=== PATIENT | female | born 1935 | race Caucasian/White ===

== ENCOUNTER 2016-12-16 09:45 | Outpatient (CLI) | payer MEDICARE, OTHER ==
[2016-12-16 13:51] LABS: BASOPHILS # (AUTO) 0.1 10^3/uL (0.0-0.1); BASOPHILS % (AUTO) 1.2 %; EOSINOPHILS # (AUTO) 0.1 10^3/uL (0.0-0.7); HCT - HEMATOCRIT 32.3 % (37.0-47.0); HGB - HEMOGLOBIN 10.4 g/dL (12.0-16.0); LYMPHOCYTES % (AUTO) 38.3 %; MEAN CORPUSCULAR HEMOGLOBIN 26.4 pg (27.0-31.0); MEAN CORPUSCULAR HGB CONC 32.2 g/dL (32.0-36.0); MONOCYTES # (AUTO) 0.5 10^3/uL (0.0-1.0); MONOCYTES % (AUTO) 9.4 %; NEUTROPHILS # (AUTO) 2.6 10^3/uL (1.5-6.6); NEUTROPHILS % (AUTO) 49.1 %; RED BLOOD COUNT 3.93 10^6/uL (4.20-5.40); RED CELL DISTRIBUTION WIDTH 15.9 % (12.0-15.0); UNCORRECTED WHITE BLOOD COUNT 5.3 x10^3/uL; WHITE BLOOD COUNT 5.3 x10^3/uL (4.8-10.8)
[2016-12-16 14:00] LABS: ALBUMIN/GLOBULIN RATIO 1.2 (1.0-2.2); BILIRUBIN,TOTAL 0.6 mg/dL (0.2-1.0); BUN - BLOOD UREA NITROGEN 16 mg/dL (6-20); CALCIUM 9.3 mg/dL (8.5-10.3); CARBON DIOXIDE - CO2 24 mmol/L (21-32); CHLORIDE 106 mmol/L (101-111); CREATININE 1.1 mg/dL (0.4-1.0); GFR - MDRD 48 (>89); GLUCOSE 81 mg/dL (70-100); MAGNESIUM 1.6 mg/dL (1.7-2.8); POTASSIUM 4.3 mmol/L (3.5-5.0); SODIUM 138 mmol/L (135-145); TOTAL PROTEIN 7.1 g/dL (6.7-8.2)
[2016-12-16 14:30] LABS: THYROID STIMULATING HORMONE 5.9 uIU/mL (0.34-5.60)
== END 2016-12-16 09:46 | disposition home or self-care (01) ==
LOC: LAB.WCP 09:45
PROVIDERS: ATTEND Physician Assistant Medical
DX: R25.2 Cramp and spasm (principal); R63.5 Abnormal weight gain; Z79.899 Other long term (current) drug therapy
CPT/HCPCS: 36415; 80053; 83735; 84439; 84443; 85025

== ENCOUNTER 2017-01-20 17:39 | Outpatient (CLI) | payer MEDICARE, OTHER ==
[2017-01-20 13:38] LABS: FERRITIN 5.8 ng/mL (11.0-306.8)
[2017-01-20 13:41] LABS: BASOPHILS # (AUTO) 0.1 10^3/uL (0.0-0.1); BASOPHILS % (AUTO) 1.1 %; EOSINOPHILS # (AUTO) 0.1 10^3/uL (0.0-0.7); EOSINOPHILS % (AUTO) 1.7 %; HCT - HEMATOCRIT 31.5 % (37.0-47.0); IMMATURE RETIC FRACTION 0.53; LYMPHOCYTES # (AUTO) 2.1 10^3/uL (1.5-3.5); LYMPHOCYTES % (AUTO) 33.7 %; MEAN CORPUSCULAR HEMOGLOBIN 25.7 pg (27.0-31.0); MEAN CORPUSCULAR HGB CONC 31.9 g/dL (32.0-36.0); MEAN CORPUSCULAR VOLUME 80.5 fL (81.0-99.0); MONOCYTES # (AUTO) 0.6 10^3/uL (0.0-1.0); NEUTROPHILS # (AUTO) 3.4 10^3/uL (1.5-6.6); NEUTROPHILS % (AUTO) 54.5 %; NUCLEATED RED BLOOD CELLS AUTO 0.1 /100WBC; RED BLOOD COUNT 3.91 10^6/uL (4.20-5.40); RED CELL DISTRIBUTION WIDTH 15.9 % (12.0-15.0); UNCORRECTED WHITE BLOOD COUNT 6.2 x10^3/uL; WHITE BLOOD COUNT 6.2 x10^3/uL (4.8-10.8)
[2017-01-20 13:44] LABS: FOLATE 10.87 ng/mL (5.90 - >24.8)
[2017-01-20 13:45] LABS: ALBUMIN/GLOBULIN RATIO 1.3 (1.0-2.2); BILIRUBIN,TOTAL 0.7 mg/dL (0.2-1.0); CALCIUM 8.9 mg/dL (8.5-10.3); CREATININE 0.8 mg/dL (0.4-1.0); POTASSIUM 4.3 mmol/L (3.5-5.0); TOTAL PROTEIN 7.2 g/dL (6.7-8.2)
== END 2017-01-20 17:40 | disposition home or self-care (01) ==
LOC: LAB.WCP 17:39
PROVIDERS: ATTEND Physician Assistant Medical
DX: D64.9 Anemia, unspecified (principal); R19.01 Right upper quadrant abdominal swelling, mass and lump; Z51.81 Encounter for therapeutic drug level monitoring; Z79.899 Other long term (current) drug therapy
CPT/HCPCS: 36415; 80053; 82607; 82728; 82746; 83540; 84466; 85025; 85044

== ENCOUNTER 2017-01-24 14:24 | Outpatient (CLI) | payer MEDICARE, OTHER ==
[2017-01-24] MEDS ORDERED: IOPAMIDOL-300 50 ML VIAL PO ONE (16:04)
[2017-01-24] MEDS ORDERED: IOPAMIDOL-300 100 ML VIAL IVP ONE (16:48)
--- NOTE | 2017-01-25 08:47 | CT Report ---
CT ABDOMEN AND PELVIS WITH CONTRAST: 01/24/2017 CLINICAL INDICATION: Anemia, right upper quadrant swelling. TECHNIQUE: Axial CT images of the abdomen and pelvis were obtained with 100 mL Isovue-300 intravenou sly. Oral contrast was also administered. In accordance with CT protocol optimization, one or more of the following dose reduction techniques w ere utilized for this exam: automated exposure control, adjustment of mA and/or KV based on patient size, or use of iterative reconstructive technique. COMPARISON: 03/23/2013 FINDINGS: Limited evaluation of the lung bases is unremarkable. Abdomen: The liver, spleen, pancreas, kidneys, and adrenal glands are unremarkable. The patient is status post cholecystectomy. No bowel dilatation, free gas, or free fluid is present. No abdominal adenopathy is seen. Pelvis: Postoperative changes of hysterectomy are present. No pelvic adenopathy or free fluid is pr esent. The appendix is seen in the right lower quadrant, and is normal in caliber. No pelvic adenop athy or free fluid is present. Osseous structures demonstrate degenerative changes. IMPRESSION: POSTOPERATIVE CHANGES. NO EVIDENT ETIOLOGY FOR PATIENT'S ANEMIA AND SWELLING. NO EVIDE NT MASS. JOB #: [id number] EXT JOB #:[id number]
== END 2017-01-24 14:25 | disposition home or self-care (01) ==
LOC: DI 14:24
PROVIDERS: ATTEND Physician Assistant Medical
DX: R19.01 Right upper quadrant abdominal swelling, mass and lump (principal); D64.9 Anemia, unspecified
CPT/HCPCS: 74177; Q9967

== ENCOUNTER 2017-02-21 14:57 | Outpatient (CLI) | payer MEDICARE, OTHER ==
[2017-02-21 19:15] LABS: BASOPHILS % (AUTO) 0.5 %; EOSINOPHILS % (AUTO) 0.2 %; HGB - HEMOGLOBIN 11.9 g/dL (12.0-16.0); LYMPHOCYTES # (AUTO) 1.1 10^3/uL (1.5-3.5); LYMPHOCYTES % (AUTO) 15.2 %; MEAN CORPUSCULAR HEMOGLOBIN 26.7 pg (27.0-31.0); MEAN CORPUSCULAR HGB CONC 32.1 g/dL (32.0-36.0); MEAN CORPUSCULAR VOLUME 83.3 fL (81.0-99.0); MONOCYTES # (AUTO) 0.4 10^3/uL (0.0-1.0); MONOCYTES % (AUTO) 6.2 %; NEUTROPHILS # (AUTO) 5.4 10^3/uL (1.5-6.6); NEUTROPHILS % (AUTO) 77.9 %; RED BLOOD COUNT 4.45 10^6/uL (4.20-5.40); RED CELL DISTRIBUTION WIDTH 19.4 % (12.0-15.0)
[2017-02-21 19:29] LABS: ALBUMIN/GLOBULIN RATIO 1.4 (1.0-2.2); BILIRUBIN,TOTAL 1.1 mg/dL (0.2-1.0); CALCIUM 9.5 mg/dL (8.5-10.3); POTASSIUM 4.2 mmol/L (3.5-5.0); TOTAL PROTEIN 7.5 g/dL (6.7-8.2)
== END 2017-02-21 14:58 | disposition home or self-care (01) ==
LOC: LAB.WCP 14:57
PROVIDERS: ATTEND Family Medicine
DX: R19.01 Right upper quadrant abdominal swelling, mass and lump (principal)
CPT/HCPCS: 36415; 80053; 85025

== ENCOUNTER 2017-02-23 12:49 | Inpatient (IN) | payer MEDICARE, OTHER ==
[2017-02-23] MEDS ORDERED: SODIUM CHLORIDE 0.9% 1,000 ML IV ONE ×2 (13:21→14:08)
[2017-02-23] MEDS ORDERED: SODIUM CHLORIDE FLUSH 0.9% 10 ML SYRINGE IVP ONE (13:23)
--- NOTE | 2017-02-23 13:23 | ED Physician Documentation ---
PD HPI ABD PAIN - Stated complaint Stated Complaint: DEHYDRATION - Chief complaint Chief Complaint: Abd Pain - History obtained from History obtained from: Patient, Family - History of Present Illness Timing - onset: Other (82-year-old woman status post remote hysterectomy and cholecystectomy presents with dizziness and weakness. It started 2 days ago with chills and body aches. Yesterday she had severe left lower quadrant pain and has had diarrhea without blood. There is no associated vomiting or nausea. No pain in her abdomen now. She was seen at the doctor's office and was noted to be orthostatic and was sent here for further evaluation and treatment. She admits to lightheadedness when she stands up. No sick contacts or recent travel.) Review of Systems Constitutional: reports: Chills, Myalgias, Fatigue. denies: Fever Nose: reports: Rhinorrhea / runny nose (Chronic, unchanged). denies: Congestion Throat: denies: Sore throat Cardiac: denies: Chest pain / pressure, Palpitations Respiratory: denies: Dyspnea, Cough GI: reports: Abdominal Pain, Diarrhea. denies: Nausea, Vomiting, Bloody / black stool PD PAST MEDICAL HISTORY - Past Medical History Past Medical History: Yes Cardiovascular: Other Respiratory: COPD, Emphysema Endocrine/Autoimmune: None GI: GERD : Incontinence HEENT: None Psych: None Musculoskeletal: Osteoarthritis Derm: None - Past Surgical History Past Surgical History: Yes General: Cholecystectomy, Colonoscopy /[employer]: Hysterectomy HEENT: Cataracts, Tonsil/Adenoidectomy - Present Medications Home Medications: Ambulatory Orders Medication Instructions Recorded Confirmed Famotidine 10 mg PO 03/23/13 03/23/13 Promethazine [Phenergan] 25 - 50 mg PO Q6H PRN #10 tab 03/23/13 oxyCODONE/ACET 5/325 [Percocet 5 1 each PO Q4-6H PRN #20 tablet 03/23/13 mg/325 mg] Oxybutynin [Ditropan] 10 mg PO BID 03/27/13 03/27/13 - Allergies Allergies/Adverse Reactions: Allergies Allergy/AdvReac Type Severity Reaction Status Date / Time Penicillins Allergy Intermediate Hives Verified 02/23/17 13:06 omeprazole AdvReac Intermediate Rash Verified 02/23/17 13:06 - Social History Does the pt smoke?: Yes Smoking Status: Former smoker Does the pt drink ETOH?: No Does the pt have substance abuse?: No - Family History Family history: reports: Non contributory - Immunizations Immunizations are current?: Yes - POLST Patient has POLST: No PD ED PE NORMAL - Vitals Vital signs reviewed: Yes - General General: Alert and oriented X 3, No acute distress - HEENT HEENT: PERRL, EOMI - Neck Neck: Supple, no meningeal sign, No bony TTP - Cardiac Cardiac: RRR, No murmur - Respiratory Respiratory: No respiratory distress, Clear bilaterally - Abdomen Abdomen: Other (Soft with normal bowel tones, tender in the left lower quadrant without surgical signs.) - Back Back: No CVA TTP, No spinal TTP - Derm Derm: Warm and dry, No rash - Extremities Extremities: No edema, No calf tenderness / cord - Neuro Neuro: Alert and oriented X 3, No motor deficit, Normal speech - Psych Psych: Normal mood, Normal affect Results - Vitals Vitals: Vital Signs - 24 hr 02/23/17 02/23/17 13:03 13:31 Temperature 36.2 C L Heart Rate 83 74 Respiratory 20 17 Rate Blood Pressure 97/49 L 104/61 O2 Saturation 97 92 Oxygen O2 Source Room air - Labs Labs: Laboratory Tests 02/23/17 02/23/17 02/23/17 13:30 13:30 13:30 WBC 5.5 RBC 4.35 Hgb 11.6 L Hct 35.8 L MCV 82.3 MCH 26.5 L MCHC 32.3 RDW 19.1 H Plt Count 126 L MPV 9.2 Neut # 3.6 Lymph # 1.2 L Thayer # 0.6 Eos # 0.0 Baso # 0.0 Absolute Nucleated RBC 0.00 Nucleated RBC % 0.0 Manual Slide Review Indicated Platelet Estimate NORMAL (130-450,000) Platelet Morphology NORMAL APPEARANCE RBC Morph Micro Appear NORMAL APPEARANCE Sodium 132 L Potassium 3.4 L Chloride 97 L Carbon Dioxide 23 Anion Gap 12.0 BUN 28 H Creatinine 2.2 H Estimated GFR (MDRD) 21 L Glucose 121 H Lactic Acid 1.2 Calcium 8.2 L Total Bilirubin 0.8 AST 23 ALT 13 Alkaline Phosphatase 60 Total Protein 7.1 Albumin 3.7 Globulin 3.4 Albumin/Globulin Ratio 1.1 Lipase 24 - Rads (name of study) CT A/P Radiology: EMP read contemporaneously (Pericolonic fat stranding suspicious for colitis, no other abnormalities with the exception of vascular disease.) PD MEDICAL DECISION MAKING - ED course ED course: 82-year-old woman presents with diarrhea and evidence of dehydration with orthostasis, low blood pressures, and acute renal injury on labs. CT done without contrast demonstrates evidence of colitis. Stool was collected. She was administered IV fluids, Cipro, and Flagyl. Call to the hospitalist for admission at 1524. Departure - Departure Disposition: 66 [facility] DC/Xfer Clinical Impression: Dehydration, Colitis Acute renal failure Qualifiers: Acute renal failure type: unspecified Qualified Code(s): N17.9 - Acute kidney failure, unspecified Condition: Stable
[2017-02-23 13:49] LABS: BASOPHILS % (AUTO) 0.6 %; EOSINOPHILS % (AUTO) 0.1 %; HCT - HEMATOCRIT 35.8 % (37.0-47.0); HGB - HEMOGLOBIN 11.6 g/dL (12.0-16.0); LYMPHOCYTES # (AUTO) 1.2 10^3/uL (1.5-3.5); LYMPHOCYTES % (AUTO) 22.9 %; MEAN CORPUSCULAR HEMOGLOBIN 26.5 pg (27.0-31.0); MEAN CORPUSCULAR HGB CONC 32.3 g/dL (32.0-36.0); MEAN CORPUSCULAR VOLUME 82.3 fL (81.0-99.0); MEAN PLATELET VOLUME 9.2 fL (7.9-10.8); MONOCYTES # (AUTO) 0.6 10^3/uL (0.0-1.0); MONOCYTES % (AUTO) 10.9 %; NEUTROPHILS # (AUTO) 3.6 10^3/uL (1.5-6.6); NEUTROPHILS % (AUTO) 65.5 %; RED BLOOD COUNT 4.35 10^6/uL (4.20-5.40); RED CELL DISTRIBUTION WIDTH 19.1 % (12.0-15.0); UNCORRECTED WHITE BLOOD COUNT 5.5 x10^3/uL; WHITE BLOOD COUNT 5.5 x10^3/uL (4.8-10.8)
[2017-02-23 13:57] LABS: ALBUMIN/GLOBULIN RATIO 1.1 (1.0-2.2); BILIRUBIN,TOTAL 0.8 mg/dL (0.2-1.0); CALCIUM 8.2 mg/dL (8.5-10.3); CREATININE 2.2 mg/dL (0.4-1.0); POTASSIUM 3.4 mmol/L (3.5-5.0); TOTAL PROTEIN 7.1 g/dL (6.7-8.2)
[2017-02-23 14:03] LABS: PLATELET ESTIMATE, MANUAL NORMAL (130-450,000) (NORMAL); PLATELET MORPHOLOGY NORMAL APPEARANCE (NORMAL)
--- NOTE | 2017-02-23 15:13 | CT Preliminary Report ---
Exam: CT Abdomen/Pelvis W/O IMPRESSION: 1. There areas of mild pericolonic fat stranding and possibly some associated wall thickening. Findin gs are suspicious for mild colitis. 2. No acute solid abdominal organ abnormalities are seen. The kidneys demonstrate no stones or hydron ephrosis. 3. There are atheromatous calcifications of the aorta SITE ID: [id number]
--- NOTE | 2017-02-23 15:16 | CT Report ---
EXAM: CT ABDOMEN AND PELVIS EXAM DATE: 02/23/2017 02:52 PM. CLINICAL HISTORY: Left lower quadrant pain, renal failure, diarrhea. COMPARISONS: 01/14/2017. TECHNIQUE: Routine axial helical CT imaging was performed through the abdomen and pelvis without IV c ontrast. Reconstructions: Coronal and sagittal. In accordance with CT protocol optimization, one or more of the following dose reduction techniques w ere utilized for this exam: automated exposure control, adjustment of mA and/or KV based on patient s ize, or use of iterative reconstructive technique. FINDINGS: Lung Bases: Unremarkable. Abdominal Organs: Noncontrast images of the abdominal organs are grossly unremarkable. Gallbladder/bile ducts: No significant abnormalities. Peritoneal Cavity: There are areas of pericolonic fat stranding and perhaps mild associated wall thic kening. This is most pronounced within the lower right colon. There is no evidence of intraperitoneal free air or free fluid. No small bowel obstruction. The appendix is normal. No enlarged mesenteric o r retroperitoneal lymph nodes. Pelvic Organs: No bladder stones or wall thickening. Noncontrast images of the visualized pelvic orga ns are unremarkable. Vasculature: There are atheromatous calcifications of the aorta and branch vessels. Other: None. IMPRESSION: 1. There areas of mild pericolonic fat stranding and possibly some associated wall thickening. Findin gs are suspicious for mild colitis. 2. No acute solid abdominal organ abnormalities are seen. The kidneys demonstrate no stones or hydron ephrosis. 3. There are atheromatous calcifications of the aorta Referring Provider Line: [phone] SITE ID: [id number]
[2017-02-23] MEDS ORDERED: CIPROFLOXACIN 400 MG/200 ML 200 ML IV ONE (15:23)
[2017-02-23] MEDS ORDERED: metroNIDAZOLE 500 MG/100 ML 500 MG/100 ML BAG IV ONE (15:23)
[2017-02-23] MEDS ORDERED: ACETAMINOPHEN 325 MG TABLET PO PRN ×3 (16:51→18:06)
[2017-02-23] MEDS ORDERED: ONDANSETRON 4 MG/2 ML VIAL IVP PRN ×2 (16:51→17:31)
[2017-02-23] MEDS ORDERED: ZOLPIDEM 5 MG TABLET PO PRN ×2 (16:51→17:31)
[2017-02-23] MEDS ORDERED: SODIUM CHLORIDE FLUSH 0.9% 10 ML SYRINGE IVP PRN ×2 (16:51→17:31)
[2017-02-23] MEDS ORDERED: CIPROFLOXACIN 200 MG/100 ML 100 ML IV SCH ×2 (17:00→18:00)
[2017-02-23] MEDS ORDERED: SODIUM CHLORIDE 0.9% 1,000 ML IV SCH (17:00)
[2017-02-23] MEDS ORDERED: POTASSIUM CHLORIDE 20 MEQ TABLET PO STA ×2 (17:05)
--- NOTE | 2017-02-23 17:10 | HISTORY & PHYSICAL EXAMINATION ---
Chief Complaint - Chief Complaint Chief Complaint: abdominal pain and diarrhea History of Present Illness - Admitted From Admitted From:: emergence department - History Obtained From History obtained from: patient - History of Present Illness HPI Comment/Other: This is a 82-year-old female with a past medical history significant for COPD, Emphysema, GERD, urinary incontinence, Osteoarthritis, who present emergence department for evaluation of abdominal pain and diarrhea. Patient report she had chill but no fever, and weakness at this Tuesday, then she saw her PCP. She had blood test in her PCP office but no other significance was found at that time. Patient state she found herself more weakness and developed diarrhea on Tuesday. There is no nausea or vomiting or bloody stool. Today morning, patient report she had severe sharp pain at her left lower quadrant of abdomen specially when she moved. Then her daughter brought her to emergence department for evaluation. Patient denies chest pain, shortness of breathing, headache. Patient report she smoked cigarette for 55 years and stopped smoking at 2006, and no more alcoholic abuse. Patient denies illicit drug abuse. CT of abdomen without contrast today in ER reveals suspicious to mild colitis. lab test reveals significant increase of creatinine to 2.2 from 1.0 two days ago , BUN 28 from 12 two days ago. HGB 11.6, HCT 35.8, Plt 126. History - Past Medical History Cardiovascular: reports: Other Respiratory: reports: COPD, Emphysema Endocrine/Autoimmune: reports: None GI: reports: GERD : reports: Incontinence HEENT: reports: None Psych: reports: None Musculoskeletal: reports: Osteoarthritis Derm: reports: None MRSA Hx?: No - Past Surgical History General: reports: Cholecystectomy, Colonoscopy /[employer]: reports: Hysterectomy HEENT: reports: Cataracts, Tonsil/Adenoidectomy - Family & Social History Family History: Mother: (Mom of cuptured aneursym, Dad of Lung cancer), Father: Family History Comment/Other: pt was , is living alone. Pt had two children, one live, one . Living arrangement: At home Living Situation: Alone Social History Notes: pt report she smoked cigarette for 55 yeas, stopped on 2006, no more alcoholic abuse, denies illicit drug - Substance History Use: Uses substance without health or social issues: NONE Abuse: Recurrent use of substance despite neg consequences: NONE Dependence: Experiences withdrawal or developed tolerances: NONE - POLST Patient has POLST: No POLST Status: Full Code Meds/Allgy - Home Medications Home Medications: Ambulatory Orders Medication Instructions Recorded Confirmed Famotidine 10 mg PO 03/23/13 03/23/13 Gabapentin [Neurontin] 100 mg PO QPM 02/23/17 02/23/17 Losartan [Cozaar] PO 02/23/17 - Allergies Allergies/Adverse Reactions: Allergies Allergy/AdvReac Type Severity Reaction Status Date / Time Penicillins Allergy Intermediate Hives Verified 02/23/17 13:06 omeprazole AdvReac Intermediate Rash Verified 02/23/17 13:06 Review of Systems - Constitutional Constitutional: reports: Fatigue, Chills, Weakness. denies: Fever, Malaise, Diaphoresis, Night sweats - Eyes Eyes: denies: Pain, Irritation, Amaurosis, Blurred vision, Spots in vision, Field loss, Vision loss - Ears, Nose & Throat Ears, Nose & Throat: denies: Ear pain, Hearing loss, Hearing aids, Tinnitus, Vertigo, Nasal pain, Nasal discharge, Nosebleeds, Sore throat, Hoarseness - Cardiovascular Cariovascular: denies: Irregular heart rate, Palpitations, Chest pain, Edema, Lightheadedness, Syncope - Respiratory Respiratory: denies: Cough, Sputum production, Wheezing, Snoring, Hemoptysis, Orthopnea, SOB at rest, SOB with exertion - Gastrointestinal Gastrointestinal: reports: Abdominal pain, Diarrhea. denies: Abdominal distention, Constipation, Change in bowel habits, Rectal bleeding, Black stools , Nausea, Vomiting, Ziggy blood emesis, Coffee grounds emesis - Genitourinary Genitourinary: reports: Incontinence. denies: Dysuria, Frequency, Urgency, Hematuria, Flank pain, Nocturia - Musculoskeletal Musculoskeletal: denies: Muscle pain, Back pain, Muscle aches, Stiffness, Limited range of motion, Muscle weakness, Joint pain - Integumentary Integumentary: denies: Rash, Pruritis, Lesions, Acne, Pigment changes - Neurological Neurological: denies: General weakness, Focal weakness, Headache, Dizziness, Numbness, Memory problems, Pre-existing deficit, Abnormal gait, Seizures, Incoordination, Slurred speech - Psychiatric Psychiatric: denies: Depression, Anxiety, Suicidal, Delusions, Hallucinations, Homicidal - Endocrine Endocrine: denies: Polyuria, Polydypsia, Polyphagia, Intolerance to cold, Intolerance to heat - Hematologic/Lymphatic Hematologic/Lymphatic: denies: Anemia, Bruising, Petechiae, Blood clots, Lymphadenopathy, Bleeding tendencies Exam - Vital Signs Reviewed Vital Signs: Yes Vital Signs: Vital Signs x48h Temp Pulse Resp BP Pulse Ox 02/23/17 16:24 122/48 L 02/23/17 15:42 72 14 96 02/23/17 13:31 74 17 104/61 92 02/23/17 13:03 36.2 C L 83 20 97/49 L 97 - Physical Exam General Appearance: positive: No acute distress, Alert. negative: Lethargic Eyes Bilateral: positive: Normal inspection, PERRL, No lid inflammation, Conjunctivae nml ENT: positive: ENT inspection nml, Pharynx nml, No signs of dehydration. negative: Purulent nasal drainage, Pharyngeal erythema, Oral lesions Neck: positive: Nml inspection, Thyroid nml, No JVD, Trachea midline. negative : Thyromegaly, Lymphadenopathy (R), Lymphadenopathy (L), Stiff neck, Swelling/ bruising, Tracheal deviation Respiratory: positive: Chest non-tender, No respiratory distress, Breath sounds nml. negative: Wheezes, Rales, Rhonchi Cardiovascular: positive: Regular rate & rhythm, No murmur, No gallop. negative : Tachycardia, Bradycardia, Systolic murmur, Diastolic murmur Peripheral Pulses: positive: 2+ Abdomen: positive: Non-tender, No organomegaly, Nml bowel sounds, No distention. negative: Guarding, Rebound Back: positive: Nml inspection. negative: CVA tenderness (R), CVA tenderness (L ) Skin: positive: Color nml, No rash, Warm, Dry Extremities: positive: Non-tender, Full ROM, Nml appearance Neurologic/Psychiatric: positive: Oriented x3, Mood/affect nml. negative: Weakness, Sensory loss, Facial droop, Slurred/abnml speech, Depressed mood/ affect Conclusion/Plan - Problem List (1) Colitis Conclusion/Plan: pt report left lower quadrant abdominal pain, diarrhea, and CT suggest mild colitis. But pt refuse to have clear liquid diet, agree to have soft diet plan: soft diet IVF NS Cipro flagyl C.Diff test pending, positive for Campylobacterial in stool, treated with Cipro daily lab, vital, monitor (2) Acute renal failure Conclusion/Plan: pt's creatinine 2.2 from 1 two days ago, BUN 28 from 12 two days ago. it appears from dehydration and diarrhea. IVF NS 150 cc/h check total CK daily check renal function, CMP hold nephrotoxic agent Qualifiers: Acute renal failure type: unspecified Qualified Code(s): N17.9 - Acute kidney failure, unspecified (3) Dehydration Conclusion/Plan: it appears due to pt's diarrhea, loss of fluid hydration with IVF oral diet daily lab test and vital check (4) Diarrhea Conclusion/Plan: pt with colitis, test positive for Campylobacterial C.Diff test pending treat with Cipro for Campylobacterial IVF NS daily lab test, correct electrolytic as needed (5) HTN (hypertension) Conclusion/Plan: stable, resume home meds [place] (6) Hyponatremia Conclusion/Plan: slight lower Sodium, IVF NS daily lab test monitor (7) Hypokalemia Conclusion/Plan: potassium 3.4 replacement of potassium daily lab to monitor (8) History of COPD Conclusion/Plan: pt has long hx of cigarette smoking and COPD. Now it is stable, room air S O2 is 100%. pt does not have complaint on this problem. vital monitor, intervention as needed (9) DVT prophylaxis Conclusion/Plan: SCD only, pt refuse to have DVT prophylaxis medications - Lab Results Fish Bones: 02/24/17 05:23 02/24/17 05:23 Issues/Core Measures - Anticipated LOS Anticipated Stay Length: 2 or more midnights (expected two or more days due to acute kidney failure, and acute infection colitis)
[2017-02-23] MEDS ORDERED: metroNIDAZOLE 500 MG/100 ML 500 MG/100 ML BAG IV SCH (18:00)
[2017-02-23] MEDS: metroNIDAZOLE 500 MG/100 ML 500 MG/100 ML BAG IV SCH ×2 (18:00→23:49)
[2017-02-23] MEDS: CIPROFLOXACIN 200 MG/100 ML 100 ML IV SCH (19:34)
[2017-02-23] MEDS ORDERED: HEPARIN 5,000 UNIT/ML VIAL SUBQ SCH (21:00)
[2017-02-23] MEDS ORDERED: MIN OIL/DIMETHICON/COCONUT OIL 92 GM TUBE TOP PRN (21:56)
[2017-02-23] MEDS: GABAPENTIN 100 MG CAPSULE PO SCH (22:00)
[2017-02-23] MEDS ORDERED: SODIUM CHLORIDE FLUSH 0.9% 10 ML SYRINGE IVP SCH (22:00)
[2017-02-23] MEDS: HEPARIN 5,000 UNIT/ML VIAL SUBQ SCH (22:00)
[2017-02-23] MEDS: SODIUM CHLORIDE 0.9% 1,000 ML IV SCH (22:01)
[2017-02-23] MEDS: SODIUM CHLORIDE FLUSH 0.9% 10 ML SYRINGE IVP SCH (22:01)
[2017-02-24] MEDS: SODIUM CHLORIDE 0.9% 1,000 ML IV SCH ×2 (02:13→12:31)
[2017-02-24] MEDS: metroNIDAZOLE 500 MG/100 ML 500 MG/100 ML BAG IV SCH ×3 (05:53→17:52)
[2017-02-24] MEDS: SODIUM CHLORIDE FLUSH 0.9% 10 ML SYRINGE IVP SCH ×3 (05:55→20:49)
[2017-02-24 06:12] LABS: BASOPHILS % (AUTO) 0.7 %; EOSINOPHILS # (AUTO) 0.1 10^3/uL (0.0-0.7); EOSINOPHILS % (AUTO) 1.5 %; HCT - HEMATOCRIT 29.4 % (37.0-47.0); HGB - HEMOGLOBIN 9.6 g/dL (12.0-16.0); LYMPHOCYTES # (AUTO) 1.1 10^3/uL (1.5-3.5); LYMPHOCYTES % (AUTO) 30.9 %; MEAN CORPUSCULAR HEMOGLOBIN 26.9 pg (27.0-31.0); MEAN CORPUSCULAR HGB CONC 32.7 g/dL (32.0-36.0); MEAN CORPUSCULAR VOLUME 82.1 fL (81.0-99.0); MEAN PLATELET VOLUME 9.2 fL (7.9-10.8); MONOCYTES # (AUTO) 0.6 10^3/uL (0.0-1.0); MONOCYTES % (AUTO) 18.5 %; NEUTROPHILS # (AUTO) 1.7 10^3/uL (1.5-6.6); NEUTROPHILS % (AUTO) 48.4 %; NUCLEATED RED BLOOD CELLS AUTO 0.1 /100WBC; RED BLOOD COUNT 3.58 10^6/uL (4.20-5.40); RED CELL DISTRIBUTION WIDTH 18.8 % (12.0-15.0); UNCORRECTED WHITE BLOOD COUNT 3.4 x10^3/uL; WHITE BLOOD COUNT 3.4 x10^3/uL (4.8-10.8)
[2017-02-24 06:23] LABS: ALBUMIN/GLOBULIN RATIO 1.2 (1.0-2.2); BILIRUBIN,TOTAL 0.7 mg/dL (0.2-1.0); CALCIUM 7.3 mg/dL (8.5-10.3); CREATININE 1.1 mg/dL (0.4-1.0); MAGNESIUM 1.2 mg/dL (1.7-2.8); POTASSIUM 3.5 mmol/L (3.5-5.0); TOTAL PROTEIN 5.6 g/dL (6.7-8.2)
[2017-02-24] MEDS: CIPROFLOXACIN 200 MG/100 ML 100 ML IV SCH ×2 (06:55→19:03)
[2017-02-24] MEDS ORDERED: MAGNESIUM SULFATE 2 GM in SODIUM CHLORIDE 0.9% 50 ML IV ONE (08:29)
[2017-02-24] MEDS ORDERED: CALCIUM GLUCONATE 1,000 MG in SODIUM CHLORIDE 0.9% 50 ML IV ONE (08:29)
[2017-02-24] MEDS: POLYETHYLENE GLYCOL 3350 17 GM PACKET PO SCH (08:40)
[2017-02-24] MEDS: HEPARIN 5,000 UNIT/ML VIAL SUBQ SCH (08:59)
[2017-02-24] MEDS ORDERED: FAMOTIDINE 20 MG TABLET PO SCH (09:00)
[2017-02-24] MEDS ORDERED: SODIUM CHLORIDE 0.9% 1,000 ML IV SCH (09:00)
[2017-02-24] MEDS ORDERED: POLYETHYLENE GLYCOL 3350 17 GM PACKET PO SCH (09:00)
[2017-02-24] MEDS ORDERED: MAGNESIUM SULFATE 2 GRAM 2 GM/50 ML BAG IV ONE (09:00)
[2017-02-24] MEDS: FAMOTIDINE 20 MG TABLET PO SCH (09:06)
--- NOTE | 2017-02-24 13:20 | PROVIDER PROGRESS NOTE ---
Subjective - Prog Note Date Prog Note Date: 02/24/17 - Subjective Pt reports feeling: Improved Subjective: pt report she feel much better, abdominal pain is good controlled, and diarrhea is much better controlled. Pt denies fever, chill, chest pain, SOB or other complaints. Current Medications - Current Medications Current Medications: Active Medications Acetaminophen (Tylenol) 325 mg PO Q4HR PRN PRN Reason: Pain 1 to 4 Famotidine (Pepcid) 20 mg PO DAILY [facility] [place] Last Admin: 02/24/17 09:06 Dose: 20 mg Gabapentin (Neurontin) 100 mg PO QPM [facility] [place] Last Admin: 02/23/17 22:00 Dose: 100 mg Metronidazole (Flagyl 500 Mg/100 Ml) 500 mg in 100 mls @ 100 mls/hr IV Q6HR [facility] [place] Last Infusion: 02/24/17 13:40 Dose: Infused Ciprofloxacin (Cipro 200 Mg/100 Ml) 100 mls @ 100 mls/hr IV 0700,1900 [facility] [place] Last Infusion: 02/24/17 08:00 Dose: Infused Sodium Chloride (Normal Saline 0.9%) 1,000 mls @ 125 mls/hr IV .Q8H [facility] [place] Last Admin: 02/24/17 12:31 Dose: 125 mls/hr Losartan Potassium (Cozaar) 25 mg PO 2100 [facility] [place] Last Admin: 02/24/17 13:25 Dose: Not Given Mineral Oil (Cavilon) 1 applic TOP PRN PRN PRN Reason: Skin Care Ondansetron HCl (Zofran Inj) 4 mg IVP Q6HR PRN PRN Reason: Nausea / Vomiting Polyethylene Glycol (Miralax) 17 gm PO DAILY [facility] [place] Last Admin: 02/24/17 08:40 Dose: Not Given Sodium Chloride (Normal Saline Flush 0.9%) 10 ml IVP PRN PRN PRN Reason: NEEDED PER PROVIDER ORDERS Sodium Chloride (Normal Saline Flush 0.9%) 10 ml IVP Q8HR [facility] [place] Last Admin: 02/24/17 12:37 Dose: Not Given Zolpidem Tartrate (Ambien) 5 mg PO QPM PRN PRN Reason: Insomnia Famotidine 10 mg PO BID 03/23/13 Gabapentin [Neurontin] 100 mg PO QPM 02/23/17 Losartan [Cozaar] 25 mg PO DAILY PM 09/27/17 Mirabegron [Myrbetriq] 25 mg PO DAILY 02/24/17 Objective - Vital Signs/Intake & Output Reviewed Vital Signs: Yes Vital Signs: Vital Signs x48h Temp Pulse Resp BP Pulse Ox 02/24/17 08:09 37.4 C 75 16 124/65 96 Intake & Output: Intake & Output 02/21/17 02/22/17 02/23/17 02/24/17 23:59 23:59 23:59 23:59 Intake Total 480 600 Output Total 351 Balance 480 249 - Objective General Appearance: positive: No acute distress, Alert. negative: Lethargic Eyes Bilateral: positive: Normal inspection, PERRL, EOMI, No lid inflammation, Conjunctivae nml ENT: positive: ENT inspection nml, Pharynx nml, No signs of dehydration. negative: Purulent nasal drainage, Pharyngeal erythema, Oral lesions Neck: positive: Nml inspection, Thyroid nml, No JVD, Trachea midline. negative : Thyromegaly, Lymphadenopathy (R), Lymphadenopathy (L), Stiff neck, Swelling/ bruising, Tracheal deviation Respiratory: positive: Chest non-tender, No respiratory distress, Breath sounds nml. negative: Wheezes, Rales, Rhonchi Cardiovascular: positive: Regular rate & rhythm, No murmur, No gallop. negative : Extrasystoles, Tachycardia, Bradycardia, Systolic murmur, Diastolic murmur Peripheral Pulses: 2+ Radial (R), 2+ Radial (L), 2+ Dorsalis pedis (R), 2+ Dorsalis pedis (L) Abdomen: positive: Non-tender, Nml bowel sounds, No distention. negative: Tenderness, Guarding, Rebound Back: positive: Nml inspection. negative: CVA tenderness (R), CVA tenderness (L ) Skin: positive: Color nml, No rash, Warm, Dry. negative: Cyanosis, Diaphoresis , Pallor, Skin rash, Embolic lesions Extremities: positive: Non-tender, Full ROM, Nml appearance, No pedal edema. negative: Pedal edema, Calf tenderness, Daisy's sign/cords Neurologic/Psychiatric: positive: Oriented x3, Motor nml, Sensation nml, Mood/ affect nml. negative: Sensory loss, Facial droop, Slurred/abnml speech, Depressed mood/affect - Lab Results Fish Bones: 02/24/17 05:23 02/24/17 05:23 Other Labs: Lab Results x24hrs 02/24/17 02/24/17 Range/Units 05:23 05:23 WBC 3.4 L (4.8-10.8) x10^3/uL RBC 3.58 L (4.20-5.40) 10^6/uL Hgb 9.6 L (12.0-16.0) g/dL Hct 29.4 L (37.0-47.0) % MCV 82.1 (81.0-99.0) fL MCH 26.9 L (27.0-31.0) pg MCHC 32.7 (32.0-36.0) g/dL RDW 18.8 H (12.0-15.0) % Plt Count 108 L (130-450) 10^3/uL MPV 9.2 (7.9-10.8) fL Neut # 1.7 (1.5-6.6) 10^3/uL Lymph # 1.1 L (1.5-3.5) 10^3/uL Kimball # 0.6 (0.0-1.0) 10^3/uL Eos # 0.1 (0.0-0.7) 10^3/uL Baso # 0.0 (0.0-0.1) 10^3/uL Absolute Nucleated RBC 0.00 x10^3/uL Nucleated RBC % 0.1 /100WBC Sodium 138 (135-145) mmol/L Potassium 3.5 (3.5-5.0) mmol/L Chloride 108 (101-111) mmol/L Carbon Dioxide 21 (21-32) mmol/L Anion Gap 9.0 (6-13) BUN 21 H (6-20) mg/dL Creatinine 1.1 H (0.4-1.0) mg/dL Estimated GFR (MDRD) 48 L (>89) Glucose 94 (70-100) mg/dL Calcium 7.3 L (8.5-10.3) mg/dL Magnesium 1.2 L (1.7-2.8) mg/dL Total Bilirubin 0.7 (0.2-1.0) mg/dL AST 18 (10-42) IU/L ALT 11 (10-60) IU/L Alkaline Phosphatase 52 (42-121) IU/L Total Protein 5.6 L (6.7-8.2) g/dL Albumin 3.0 L (3.2-5.5) g/dL Globulin 2.6 (2.1-4.2) g/dL Albumin/Globulin Ratio 1.2 (1.0-2.2) Assessment/Plan - Problem List (1) Colitis Impression: (1) Colitis Conclusion/Plan: pt report her pain is in good controlled, diarrhea is much better controlled. pt tolerated the diet continue current treatment daily lab and vital monitor pt report left lower quadrant abdominal pain, diarrhea, and CT suggest mild colitis. But pt refuse to have clear liquid diet, agree to have soft diet plan: soft diet IVF NS Cipro flagyl C.Diff test pending, positive for Campylobacterial in stool, treated with Cipro daily lab, vital, monitor (2) Acute renal failure Conclusion/Plan: great progress. Pt's creatinine today is 1.1 from yesterday 2.2, BUN 21 from yesterday 28. adjust IVF from 150 to 125 cc/h. daily lab test monitor pt's creatinine 2.2 from 1 two days ago, BUN 28 from 12 two days ago. it appears from dehydration and diarrhea. IVF NS 150 cc/h check total CK daily check renal function, CMP hold nephrotoxic agent Qualifiers: Acute renal failure type: unspecified Qualified Code(s): N17.9 - Acute kidney failure, unspecified (3) Dehydration Conclusion/Plan: much better continue IVF, daily lab test, vital monitor it appears due to pt's diarrhea, loss of fluid hydration with IVF oral diet daily lab test and vital check (4) Diarrhea Conclusion/Plan: C.Diff negative diarrhea is great improved continue current treatment vital, daily lab test monitor pt with colitis, test positive for Campylobacterial C.Diff test pending treat with Cipro for Campylobacterial IVF NS daily lab test, correct electrolytic as needed (5) HTN (hypertension) Conclusion/Plan: stable, resume home meds [place] (6) Hyponatremia Conclusion/Plan: resolved slight lower Sodium, IVF NS daily lab test monitor (7) Hypokalemia Conclusion/Plan: resolved potassium 3.4 replacement of potassium daily lab to monitor (8) History of COPD Conclusion/Plan: stable. pt has long hx of cigarette smoking and COPD. Now it is stable, room air S O2 is 100%. pt does not have complaint on this problem. vital monitor, intervention as needed (2) Acute renal failure Qualifiers: Acute renal failure type: unspecified Qualified Code(s): N17.9 - Acute kidney failure, unspecified
[2017-02-24] MEDS: LOSARTAN 50 MG TABLET PO SCH ×2 (13:25→20:48)
[2017-02-24] MEDS: GABAPENTIN 100 MG CAPSULE PO SCH (20:48)
[2017-02-25] MEDS: metroNIDAZOLE 500 MG/100 ML 500 MG/100 ML BAG IV SCH ×2 (00:09→05:34)
[2017-02-25] MEDS: SODIUM CHLORIDE 0.9% 1,000 ML IV SCH ×3 (00:09→10:54)
[2017-02-25] MEDS: SODIUM CHLORIDE FLUSH 0.9% 10 ML SYRINGE IVP SCH (06:04)
[2017-02-25 06:13] LABS: ALBUMIN/GLOBULIN RATIO 1.2 (1.0-2.2); BILIRUBIN,TOTAL 0.7 mg/dL (0.2-1.0); CALCIUM 7.8 mg/dL (8.5-10.3); CREATININE 0.8 mg/dL (0.4-1.0); POTASSIUM 3.5 mmol/L (3.5-5.0); TOTAL PROTEIN 5.7 g/dL (6.7-8.2)
[2017-02-25 06:14] LABS: EOSINOPHILS # (AUTO) 0.1 10^3/uL (0.0-0.7); HCT - HEMATOCRIT 29.3 % (37.0-47.0); HGB - HEMOGLOBIN 9.5 g/dL (12.0-16.0); LYMPHOCYTES # (AUTO) 1.5 10^3/uL (1.5-3.5); LYMPHOCYTES % (AUTO) 42.2 %; MEAN CORPUSCULAR HEMOGLOBIN 26.7 pg (27.0-31.0); MEAN CORPUSCULAR HGB CONC 32.4 g/dL (32.0-36.0); MEAN CORPUSCULAR VOLUME 82.4 fL (81.0-99.0); MEAN PLATELET VOLUME 9.1 fL (7.9-10.8); MONOCYTES # (AUTO) 0.6 10^3/uL (0.0-1.0); MONOCYTES % (AUTO) 16.1 %; NEUTROPHILS # (AUTO) 1.4 10^3/uL (1.5-6.6); NEUTROPHILS % (AUTO) 37.7 %; NUCLEATED RED BLOOD CELLS AUTO 0.1 /100WBC; RED BLOOD COUNT 3.55 10^6/uL (4.20-5.40); RED CELL DISTRIBUTION WIDTH 19.1 % (12.0-15.0); UNCORRECTED WHITE BLOOD COUNT 3.6 x10^3/uL; WHITE BLOOD COUNT 3.6 x10^3/uL (4.8-10.8)
[2017-02-25] MEDS: CIPROFLOXACIN 200 MG/100 ML 100 ML IV SCH (06:50)
[2017-02-25] MEDS: POLYETHYLENE GLYCOL 3350 17 GM PACKET PO SCH (07:45)
[2017-02-25] MEDS: FAMOTIDINE 20 MG TABLET PO SCH (08:07)
[2017-02-25 08:11] VITALS: BP 147/61
--- NOTE | 2017-02-25 11:09 | Discharge Plan ---
Discharge Plan Disposition: 01 Home, Self Care Condition: Stable Prescriptions: Metronidazole [Flagyl] 500 mg PO TID #21 tablet Diet: Regular Activity Restrictions: Activity as Tolerated Shower Restrictions: No Driving Restrictions: No Weight Bearing: Full Weight Additional Instructions or Follow Up instructions: May see PCP in one week Follow-Up Care: [facility] [place] [facility] - Medical No Smoking: If you smoke, Please STOP! Call for help. Follow-up with: Maryuri Jansen PA-C [Primary Care Provider] -
--- NOTE | 2017-02-25 12:29 | DISCHARGE SUMMARY ---
Discharge Summary Admit Date: 02/23/17 Discharge Date: 02/25/17 Discharging Provider: COELHO Primary Care Provider: Maryuri Chung Code Status: Attempt Resuscitation Condition at Discharge: Stable Discharge Disposition: 01 Home, Self Care Discharge Facility Name: home - DIAGNOSES Admission Diagnoses: 1) Colitis (2) Acute renal failure (3) Dehydration (4) Diarrhea (5) HTN (hypertension) (6) Hyponatremia (7) Hypokalemia Discharge Diagnoses with Status of Each Condition: 1) Colitis pt report she did not have abdominal pain, diarrhea, tolerate her diet (2) Acute renal failure resolved, BUN 12 and creatinine 0.8 now (3) Dehydration resolved (4) Diarrhea resolved (5) HTN (hypertension) stable, follow up PCP management (6) Hyponatremia resolved (7) Hypokalemia resolved - HPI History of Present Illness: please refer from my HPI on 02/23/17 as the following: This is a 82-year-old female with a past medical history significant for COPD, Emphysema, GERD, urinary incontinence, Osteoarthritis, who present emergence department for evaluation of abdominal pain and diarrhea. Patient report she had chill but no fever, and weakness at this Tuesday, then she saw her PCP. She had blood test in her PCP office but no other significance was found at that time. Patient state she found herself more weakness and developed diarrhea on Tuesday. There is no nausea or vomiting or bloody stool. Today morning, patient report she had severe sharp pain at her left lower quadrant of abdomen specially when she moved. Then her daughter brought her to emergence department for evaluation. Patient denies chest pain, shortness of breathing, headache. Patient report she smoked cigarette for 55 years and stopped smoking at 2006, and no more alcoholic abuse. Patient denies illicit drug abuse. CT of abdomen without contrast today in ER reveals suspicious to mild colitis. lab test reveals significant increase of creatinine to 2.2 from 1.0 two days ago , BUN 28 from 12 two days ago. HGB 11.6, HCT 35.8, Plt 126. - HOSPITAL COURSE Hospital Course: Pt was admitted for abdominal pain, diarrhea, bloody stained stool. Pt was found in CT study to have colitis. In the lab test, pt was found acute kidney injury. Pt was given IVF, antibiotics Flagyl and Cipro. After treatment, pt report she did not have more abdominal pain, no diarrhea, no bloody stool. The blood test came back pt has normal renal function at BUN 12, creatinine 0.8. Pt was discharged with course of antibiotics. - ALLERGIES Allergies/Adverse Reactions: Allergies Allergy/AdvReac Type Severity Reaction Status Date / Time Penicillins Allergy Intermediate Hives Verified 02/23/17 13:06 omeprazole AdvReac Intermediate Rash Verified 02/23/17 13:06 - MEDICATIONS Home Medications: Ambulatory Orders Medication Instructions Recorded Confirmed Famotidine 10 mg PO BID 03/23/13 02/24/17 Gabapentin [Neurontin] 100 mg PO QPM 02/23/17 02/23/17 Losartan [Cozaar] 25 mg PO DAILY PM 02/23/17 02/24/17 Mirabegron [Myrbetriq] 25 mg PO DAILY 02/24/17 02/24/17 Metronidazole [Flagyl] 500 mg PO TID #21 tablet 02/25/17 - PHYSICAL EXAM AT DISCHARGE General Appearance: positive: No acute distress, Alert. negative: Lethargic Eyes Bilateral: positive: Normal inspection, PERRL, EOMI, No lid inflammation, Conjunctivae nml ENT: positive: ENT inspection nml, Pharynx nml, No signs of dehydration. negative: Purulent nasal drainage, Pharyngeal erythema, Oral lesions Neck: positive: Nml inspection, Thyroid nml, Trachea midline. negative: Thyromegaly, Lymphadenopathy (R), Lymphadenopathy (L), Stiff neck, Tracheal deviation Respiratory: positive: Chest non-tender, No respiratory distress, Breath sounds nml. negative: Wheezes, Rales, Rhonchi Cardiovascular: positive: Regular rate & rhythm, No murmur, No gallop. negative : Extrasystoles, Tachycardia, Bradycardia, Systolic murmur, Diastolic murmur Peripheral Pulses: positive: 2+ Abdomen: positive: Non-tender, No organomegaly, Nml bowel sounds, No distention. negative: Tenderness, Guarding, Rebound Back: positive: Nml inspection. negative: CVA tenderness (R), CVA tenderness (L ) Skin: positive: Color nml, No rash, Warm, Dry. negative: Cyanosis, Diaphoresis , Skin rash, Embolic lesions Extremities: positive: Non-tender, Full ROM, Nml appearance. negative: Pedal edema, Daisy's sign/cords Neurologic/Psychiatric: positive: Oriented x3, Motor nml, Sensation nml, Mood/ affect nml. negative: Sensory loss, Facial droop, Slurred/abnml speech, Depressed mood/affect - LABS Result Diagrams: 02/25/17 05:45 02/25/17 05:45 - FOLLOW UP Follow Up: pt was advised to follow up PCP in one week, and finish the antibiotics course.
== END 2017-02-25 12:06 | disposition home or self-care (01) | DRG 392 ==
LOC: ED 12:49 → MS2 16:51 → ED 17:15 → MS2 17:42
PROVIDERS: ADMIT Nurse Practitioner Gerontology; ATTEND Nurse Practitioner Gerontology
DX: K52.9 Noninfective gastroenteritis and colitis, unspecified (principal); N17.9 Acute kidney failure, unspecified; E87.1 Hypo-osmolality and hyponatremia; E86.0 Dehydration; E87.6 Hypokalemia; I10 Essential (primary) hypertension; J43.9 Emphysema, unspecified; K21.9 Gastro-esophageal reflux disease without esophagitis; R32 Unspecified urinary incontinence; M19.90 Unspecified osteoarthritis, unspecified site; Z87.891 Personal history of nicotine dependence; Z79.899 Other long term (current) drug therapy
CPT/HCPCS: 36415; 74176; 80053; 82270; 82550; 83605; 83690; 83735; 85025; 87045; 87046; 87493; 96360; 99284

== ENCOUNTER 2018-02-09 08:00 | Outpatient (CLI) | payer MEDICARE, OTHER ==
[2018-02-09 14:46] LABS: H. PYLORIS ANTIGEN STL NEGATIVE (Negative)
== END 2018-02-09 08:01 | disposition home or self-care (01) ==
LOC: LAB.R 08:00
PROVIDERS: ATTEND Family Medicine
DX: R19.7 Diarrhea, unspecified (principal); B96.81 Helicobacter pylori [H. pylori] as the cause of diseases classified elsewhere
CPT/HCPCS: 82274; 83630; 87045; 87046; 87177; 87209; 87338; 87493

== ENCOUNTER 2018-05-17 18:09 | Emergency (ER) | payer MEDICARE, OTHER ==
[2018-05-17 19:04] LABS: BASOPHILS # (AUTO) 0.1 10^3/uL (0.0-0.1); BASOPHILS % (AUTO) 1.5 %; EOSINOPHILS # (AUTO) 0.1 10^3/uL (0.0-0.7); HGB - HEMOGLOBIN 12.3 g/dL (12.0-16.0); LYMPHOCYTES # (AUTO) 2.5 10^3/uL (1.5-3.5); LYMPHOCYTES % (AUTO) 43.6 %; MEAN CORPUSCULAR HEMOGLOBIN 26.7 pg (27.0-31.0); MEAN CORPUSCULAR HGB CONC 31.5 g/dL (32.0-36.0); MEAN CORPUSCULAR VOLUME 84.9 fL (81.0-99.0); MEAN PLATELET VOLUME 9.2 fL (7.9-10.8); MONOCYTES # (AUTO) 0.5 10^3/uL (0.0-1.0); MONOCYTES % (AUTO) 8.3 %; NEUTROPHILS # (AUTO) 2.6 10^3/uL (1.5-6.6); NEUTROPHILS % (AUTO) 45.6 %; PLT - PLATELET COUNT 225 10^3/uL (130-450); RED BLOOD COUNT 4.61 10^6/uL (4.20-5.40); RED CELL DISTRIBUTION WIDTH 16.9 % (12.0-15.0); WHITE BLOOD COUNT 5.8 x10^3/uL (4.8-10.8)
[2018-05-17 19:13] LABS: ALBUMIN 4.1 g/dL (3.2-5.5); ALBUMIN/GLOBULIN RATIO 1.2 (1.0-2.2); BILIRUBIN,TOTAL 0.7 mg/dL (0.2-1.0); CALCIUM 9.2 mg/dL (8.5-10.3); TOTAL PROTEIN 7.6 g/dL (6.7-8.2)
[2018-05-17 19:21] LABS: PLATELET ESTIMATE, MANUAL NORMAL (130-450,000) (NORMAL); PLATELET MORPHOLOGY 1+ GIANT PLATELETS (NORMAL)
--- NOTE | 2018-05-17 20:49 | XRAY Report ---
Reason: chest pain Procedure Date: 05/17/2018 Accession Number: [id number] / [id number] Procedure: XR - Chest 2 View X-Ray CPT Code: 89967 FULL RESULT: EXAM: CHEST RADIOGRAPHY EXAM DATE: 05/17/2018 08:23 PM. CLINICAL HISTORY: Chest pain. COMPARISON: CHEST 2 VIEW PA/LAT 04/01/2017 2:43 PM. TECHNIQUE: 2 views. FINDINGS: Lungs/Pleura: Mildly hyperexpanded, but clear. No effusion or pneumothorax. Mediastinum: Heart and mediastinal contours are unremarkable. Upper lobe vessels not distended. Other: None. IMPRESSION: No acute disease. RADIA
--- NOTE | 2018-05-17 21:27 | ED Physician Documentation ---
PD HPI CHEST PAIN - Stated complaint Stated Complaint: CHEST PX - Chief complaint Chief Complaint: Cardiac - History obtained from History obtained from: Patient - History of Present Illness Timing - onset: How many weeks ago (3) Timing - onset during: No: Light activity, Exertion Timing - duration: Weeks (3) Timing - details: Abrupt onset (whenever she lies down. Does not feel it when up nor with walking.). No: Still present Quality: Aching, Indigestion. No: Pressure, Tightness Location: Substernal Radiation: Neck. No: Back Improved by: No: Rest Similar symptoms before: Has not had sx before Recently seen: Clinic (has gotten Rx for Famotidine and short term sucralfate.) Review of Systems Constitutional: denies: Fever, Chills, Myalgias Nose: denies: Rhinorrhea / runny nose, Congestion Throat: denies: Sore throat Cardiac: denies: Chest pain / pressure, Palpitations Respiratory: denies: Dyspnea, Cough GI: denies: Abdominal Pain, Nausea, Vomiting PD PAST MEDICAL HISTORY - Past Medical History Cardiovascular: None, Other Respiratory: COPD, Emphysema Endocrine/Autoimmune: None GI: GERD : Incontinence HEENT: None Psych: None Musculoskeletal: Osteoarthritis Derm: None - Past Surgical History Past Surgical History: Yes General: Cholecystectomy, Colonoscopy /[employer] CONS[employer]: Hysterectomy HEENT: Cataracts, Tonsil/Adenoidectomy - Present Medications Home Medications: Ambulatory Orders Medication Instructions Recorded Confirmed Famotidine 10 mg PO BID 03/23/13 02/24/17 Gabapentin [Neurontin] 100 mg PO QPM 02/23/17 02/23/17 Losartan [Cozaar] 25 mg PO DAILY PM 02/23/17 02/24/17 Mirabegron [Myrbetriq] 25 mg PO DAILY 02/24/17 02/24/17 Lidocaine Viscous 2% [Xylocaine 5 ml PO Q4H PRN #100 ml 05/17/18 Viscous 2%] Metoprolol Succinate [Toprol Xl] 25 mg PO DAILY #30 tablet 05/17/18 Sucralfate [Carafate] 1 gm PO ACHS #40 tablet 05/17/18 - Allergies Allergies/Adverse Reactions: Allergies Allergy/AdvReac Type Severity Reaction Status Date / Time Penicillins Allergy Intermediate Hives Verified 05/17/18 18:18 omeprazole AdvReac Intermediate Rash Verified 05/17/18 18:18 - Social History Does the pt smoke?: Yes Smoking Status: Former smoker Does the pt drink ETOH?: No Does the pt have substance abuse?: No - Immunizations Immunizations are current?: Yes - POLST Patient has POLST: No POLST Status: Full Code PD ED PE NORMAL - Vitals Vital signs reviewed: Yes - General General: Alert and oriented X 3, No acute distress, Well developed/nourished - HEENT HEENT: Ears normal, Pharynx benign - Neck Neck: Supple, no meningeal sign, No adenopathy - Cardiac Cardiac: No murmur. No: RRR - Respiratory Respiratory: No respiratory distress, Clear bilaterally - Abdomen Abdomen: Normal bowel sounds, Non tender, Non distended. No: Soft - Female Female : Deferred - Back Back: No CVA TTP - Derm Derm: Normal color, Warm and dry - Extremities Extremities: No tenderness to palpate, No edema - Neuro Neuro: Alert and oriented X 3, No motor deficit, Normal speech Results - Vitals Vitals: Oxygen O2 Source Room air - EKG (time done) 18:26 Rate: Rate (enter#) (94) Rhythm: Atrial fibrillation [place]: Normal Intervals: Normal [place] QRS: Normal Ischemia: Normal ST segments, Non specific changes. No: ST elevation c/w ischemia, ST depression - Labs Labs: Laboratory Tests 05/17/18 05/17/18 05/17/18 18:57 18:57 18:57 WBC 5.8 RBC 4.61 Hgb 12.3 Hct 39.1 MCV 84.9 MCH 26.7 L MCHC 31.5 L RDW 16.9 H Plt Count 225 MPV 9.2 Neut # (Auto) 2.6 Lymph # (Auto) 2.5 [place] # (Auto) 0.5 Eos # (Auto) 0.1 Baso # (Auto) 0.1 Absolute Nucleated RBC 0.00 Nucleated RBC % 0.1 Manual Slide Review Indicated WBC Morphology NORMAL APPEARANCE Platelet Estimate NORMAL (130-450,000) Platelet Morphology 1+ GIANT PLATELETS RBC Morph Micro Appear 1+ HYPOCHROMASIA Sodium 138 Potassium 3.4 L Chloride 106 Carbon Dioxide 24 Anion Gap 8.0 BUN 17 Creatinine 1.0 Estimated GFR (MDRD) 53 L Glucose 106 H Calcium 9.2 Total Bilirubin 0.7 AST 18 ALT 12 Alkaline Phosphatase 85 Troponin I < 0.04 Total Protein 7.6 Albumin 4.1 Globulin 3.5 Albumin/Globulin Ratio 1.2 Lipase 49 - Rads (name of study) chest xray Radiology: Prelim report reviewed (normal) PD MEDICAL DECISION MAKING - ED course Complexity details: considered differential (the pain is burning and strictly to lying down at night for sleep, or lying down generally. Not present when sitting up. Not exertional. ), d/w patient Departure - Departure Disposition: 01 Home, Self Care Clinical Impression: Chest pain due to gastrointestinal reflux disease Atrial fibrillation Qualifiers: Atrial fibrillation type: unspecified Qualified Code(s): I48.91 - Unspecified atrial fibrillation Condition: Stable Record reviewed to determine appropriate education?: Yes Instructions: ED Afib, ED GERD Follow-Up: Mich Patten MD [Primary Care Provider] - Prescriptions: Lidocaine Viscous 2% [Xylocaine Viscous 2%] 5 ml PO Q4H PRN #100 ml PRN Reason: Pain Metoprolol Succinate [Toprol Xl] 25 mg PO DAILY #30 tablet Sucralfate [Carafate] 1 gm PO ACHS #40 tablet Comments: You do have an irregular heartbeat called atrial fibrillation. There is no signs of heart injury based on the blood test. We would have the goal at this point of controlling the heart rate so we will start metoprolol 25 mg daily. As this affects your blood pressure as well I would have you hold the losartan for now. Continue your Ecotrin aspirin daily. Follow-up with your primary care regarding further assessment and changes in doses of the medicine as we want to have the heart rate controlled well. Regarding the chest pain at night, I would continue your current famotidine and add some Carafate regularly for the next 10 days or so. If you get the pain episodes you can also use lidocaine mixed with some of the antacid to help relieve that. Try sleeping inclined slightly and see if that helps. It does sound likely to be related to reflux. Discharge Date/Time: 05/17/18 23:07
[2018-05-17] MEDS: SUCRALFATE 1 GM/10 ML UDC PO STA (22:05)
[2018-05-17] MEDS: ASPIRIN EC 81 MG TABLET PO STA (22:06)
[2018-05-17] MEDS: METOPROLOL 5 MG/5 ML VIAL IVP STA (22:06)
[2018-05-17 22:58] VITALS: BP 166/67
== END 2018-05-17 23:07 | disposition home or self-care (01) ==
LOC: ED 18:09
DX: K21.9 Gastro-esophageal reflux disease without esophagitis (principal); R07.9 Chest pain, unspecified; I48.91 Unspecified atrial fibrillation; Z87.891 Personal history of nicotine dependence
CPT/HCPCS: 36415; 71046; 80053; 83690; 84484; 85025; 93005; 96374; 99283; 99284

== ENCOUNTER 2018-05-25 16:50 | Inpatient (IN) | payer MEDICARE, OTHER ==
[2018-05-25] MEDS ORDERED: METOPROLOL 5 MG/5 ML VIAL IVP STA ×2 (17:23→18:29)
--- NOTE | 2018-05-25 17:33 | ED Physician Documentation ---
PD HPI DYSPNEA - Stated complaint Stated Complaint: PX/WEAKNESS SENT BY DOC - Chief complaint Chief Complaint: Resp - History obtained from History obtained from: Patient - History of Present Illness Timing - duration: Days (Progressively worse since yesterday.) Timing - details: Gradual onset, Still present Associated symptoms: Palpitations Recently seen: Clinic (Was seen in clinic today, and sent here for further evaluation and treatment.), Emergency Dept (Was seen here one week and discharged with diagnosis of new A-fib and GERD; was started on metoprolol 25 mg daily.) - Additional information Additional information: The patient is an 83-year-old female who complains of generalized weakness, lightheadedness and shortness of breath that has been getting progressively worse since last night. She was unable to sleep most of the night. She reports upper back pain. She denies chest pain, fever, cough, nausea or vomiting. She was seen in the emergency department 1 week ago with upper abdominal pain, and was treated for gastroesophageal reflux disease. She was also found to be in new onset atrial fibrillation at that time, with ventricular rate in the 90s. She was discharged with prescription for metoprolol 25 mg daily. She was seen by her primary physician in clinic today and sent to the emergency department because of her rapid heart rate. Review of Systems Constitutional: reports: Fatigue, Other (lightheadedness.). denies: Fever Ears: denies: Tinnitus/ringing Nose: denies: Congestion Throat: denies: Sore throat Cardiac: reports: Palpitations. denies: Chest pain / pressure Respiratory: reports: Dyspnea. denies: Cough GI: reports: Abdominal Pain (upper abdomen). denies: Nausea, Vomiting : denies: Dysuria Skin: denies: Rash Musculoskeletal: reports: Back pain (upper back). denies: Extremity swelling Neurologic: reports: Generalized weakness. 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 HEENT: Cataracts, Tonsil/Adenoidectomy - Present Medications Home Medications: Ambulatory Orders Medication Instructions Recorded Confirmed Famotidine 10 mg PO BID 03/23/13 02/24/17 Gabapentin [Neurontin] 100 mg PO QPM 02/23/17 02/23/17 Mirabegron [Myrbetriq] 25 mg PO DAILY 02/24/17 02/24/17 Lidocaine Viscous 2% [Xylocaine 5 ml PO Q4H PRN #100 ml 05/17/18 Viscous 2%] Metoprolol Succinate [Toprol Xl] 25 mg PO DAILY #30 tablet 05/17/18 Sucralfate [Carafate] 1 gm PO ACHS #40 tablet 05/17/18 - Allergies Allergies/Adverse Reactions: Allergies Allergy/AdvReac Type Severity Reaction Status Date / Time Penicillins Allergy Intermediate Hives Verified 05/25/18 17:13 omeprazole AdvReac Intermediate Rash Verified 05/25/18 17:13 - Social History Does the pt smoke?: Yes Smoking Status: Former smoker Does the pt drink ETOH?: No Does the pt have substance abuse?: No - Immunizations Immunizations are current?: Yes - POLST Patient has POLST: No POLST Status: Full Code PD ED PE NORMAL - Vitals Vital signs reviewed: Yes (tachycardic) - General General: Alert and oriented X 3, Well developed/nourished - HEENT HEENT: Atraumatic, Pharynx benign - Neck Neck: No adenopathy, No JVD - Cardiac Cardiac: Other (Rapid rate, irregular rhythm.) - Respiratory Respiratory: Clear bilaterally - Abdomen Abdomen: Soft, Non tender - Back Back: No CVA TTP, No spinal TTP - Derm Derm: No rash - Extremities Extremities: No edema, No calf tenderness / cord - Neuro Neuro: Alert and oriented X 3, No motor deficit, No sensory deficit, Normal speech Results - Vitals Vitals: Vital Signs - 24 hr 05/25/18 05/25/18 05/25/18 16:55 17:46 17:51 Temperature 37.1 C Heart Rate 116 H 126 H 111 H Respiratory 16 23 Rate Blood Pressure 109/72 140/88 H 119/83 H O2 Saturation 100 95 05/25/18 05/25/18 05/25/18 17:57 18:02 18:17 Temperature Heart Rate 122 H 124 H 133 H Respiratory Rate Blood Pressure 122/74 119/69 105/74 O2 Saturation 12/27/18 12/27/18 12/27/18 18:32 18:37 18:45 Temperature Heart Rate 136 H 130 H 118 H Respiratory Rate Blood Pressure 124/71 125/104 H 132/70 H O2 Saturation 05/25/18 05/25/18 05/25/18 19:05 19:13 19:19 Temperature Heart Rate 124 H 70 63 Respiratory Rate Blood Pressure 138/94 H 105/73 106/69 O2 Saturation Oxygen O2 Source Room air - EKG (time done) 17:14 Rate: Rate (enter#) (136) Rhythm: Atrial fibrillation [place]: Normal Ischemia: Q waves (in V2, consistent with old anteroseptal [place].) Compare to prior EKG: Changed from prior EKG (Ventricular rate is now rapid.) Computer interpretation: Agree with computer - Labs Labs: Laboratory Tests 05/25/18 05/25/18 05/25/18 17:40 17:40 17:40 WBC 8.8 RBC 4.20 Hgb 11.2 L Hct 35.3 L MCV 84.0 MCH 26.7 L MCHC 31.8 L RDW 16.5 H Plt Count 180 MPV 9.1 Neut # (Auto) 6.3 Lymph # (Auto) 1.6 [place] # (Auto) 0.8 Eos # (Auto) 0.0 Baso # (Auto) 0.0 Absolute Nucleated RBC 0.00 Nucleated RBC % 0.0 Manual Slide Review Indicated WBC Morphology NORMAL APPEARANCE Platelet Estimate NORMAL (130-450,000) Platelet Morphology 1+ LARGE PLATELETS RBC Morph Micro Appear 1+ POLYCHROMASIA Sodium 137 Potassium 3.5 Chloride 103 Carbon Dioxide 24 Anion Gap 10.0 BUN 15 Creatinine 0.9 Estimated GFR (MDRD) 60 L Glucose 111 H Calcium 9.5 Total Bilirubin 0.9 AST 17 ALT 12 Alkaline Phosphatase 89 Troponin I < 0.04 Total Protein 7.7 Albumin 3.9 Globulin 3.8 Albumin/Globulin Ratio 1.0 Lipase 40 - Rads (name of study) 2-view CXR Radiology: Prelim report reviewed, EMP read contemporaneously, See rad report (No acute intrathoracic plain film abnormality.) PD MEDICAL DECISION MAKING - ED course Complexity details: reviewed old records, reviewed results, re-evaluated patient, considered differential, d/w patient, d/w family, d/w contamination consultant ED course: Patient's presentation is significant for atrial fibrillation with rapid ventricular response. Chest x-ray reveals no evidence to suggest congestive heart failure or pneumothorax or pneumonia. I doubt pulmonary embolus. CBC and chemistry panel are unremarkable, with a troponin of < 0.04. Treatment in the emergency department included administration of metoprolol 5 mg IV x2. Her ventricular rate barely responded, coming down from the high 120s to the low 120s. Diltiazem 15 mg was administered IV along with 60 mg orally. Normal saline 500 mL was administered IV. I discussed her condition with Dr. Endy nielsen, who accepts her for further evaluation and treatment. Since it is near change of shift, the night hospitalist will perform the hospitalist history and physical examination. After administration of diltiazem, the patient's ventricular rate came down into the 70s, remaining in atrial fibrillation. Departure - Departure Disposition: ED Place in Observation Clinical Impression: Atrial fibrillation with rapid ventricular response Condition: Stable
[2018-05-25 17:55] LABS: BASOPHILS % (AUTO) 0.6 %; EOSINOPHILS % (AUTO) 0.2 %; HGB - HEMOGLOBIN 11.2 g/dL (12.0-16.0); LYMPHOCYTES # (AUTO) 1.6 10^3/uL (1.5-3.5); LYMPHOCYTES % (AUTO) 18.6 %; MEAN CORPUSCULAR HEMOGLOBIN 26.7 pg (27.0-31.0); MEAN CORPUSCULAR HGB CONC 31.8 g/dL (32.0-36.0); MEAN PLATELET VOLUME 9.1 fL (7.9-10.8); MONOCYTES # (AUTO) 0.8 10^3/uL (0.0-1.0); MONOCYTES % (AUTO) 8.9 %; NEUTROPHILS # (AUTO) 6.3 10^3/uL (1.5-6.6); NEUTROPHILS % (AUTO) 71.7 %; PLT - PLATELET COUNT 180 10^3/uL (130-450); RED CELL DISTRIBUTION WIDTH 16.5 % (12.0-15.0); WHITE BLOOD COUNT 8.8 x10^3/uL (4.8-10.8)
[2018-05-25 18:30] LABS: PLATELET ESTIMATE, MANUAL NORMAL (130-450,000) (NORMAL)
[2018-05-25 18:36] LABS: ALBUMIN 3.9 g/dL (3.2-5.5); BILIRUBIN,TOTAL 0.9 mg/dL (0.2-1.0); CALCIUM 9.5 mg/dL (8.5-10.3); CREATININE 0.9 mg/dL (0.4-1.0); TOTAL PROTEIN 7.7 g/dL (6.7-8.2)
--- NOTE | 2018-05-25 18:41 | XRAY Report ---
Reason: SOA Procedure Date: 05/25/2018 Accession Number: [id number] / [id number] Procedure: XR - Chest 2 View X-Ray CPT Code: 46461 FULL RESULT: EXAM: CHEST RADIOGRAPHY EXAM DATE: 05/25/2018 06:18 PM. CLINICAL HISTORY: Dyspnea COMPARISON: CHEST 2 VIEW 05/17/2018 8:11 PM. TECHNIQUE: 2 views. FINDINGS: Lungs/Pleura: No focal opacities evident. No pleural effusion. No pneumothorax. Normal volumes. Mediastinum: Borderline cardiomegaly. There is mild thoracic aortic calcification. Other: None. IMPRESSION: No acute intrathoracic plain film abnormality. RADIA
[2018-05-25] MEDS ORDERED: diltiaZEM INJ 5 MG/ML VIAL IVP STA (18:45)
[2018-05-25] MEDS ORDERED: diltiaZEM 30 MG TABLET PO STA ×2 (18:46→19:04)
[2018-05-25] MEDS ORDERED: SODIUM CHLORIDE 0.9% 500 ML IV ONE (18:46)
[2018-05-25] MEDS ORDERED: ZOLPIDEM 5 MG TABLET PO PRN (20:00)
[2018-05-25] MEDS ORDERED: ACETAMINOPHEN 325 MG TABLET PO PRN (20:00)
[2018-05-25] MEDS ORDERED: METOPROLOL 5 MG/5 ML VIAL IVP PRN (20:06)
--- NOTE | 2018-05-25 20:13 | HISTORY & PHYSICAL EXAMINATION ---
Chief Complaint - Chief Complaint Chief Complaint: Weakness History of Present Illness - Admitted From Admitted From:: Emergency department - History Obtained From Records Reviewed: Emergency department records and previous visit records History obtained from: Patient Exam Limitations: None - History of Present Illness HPI Comment/Other: Patient is an 83-year-old female with past medical history of COPD, GERD, and a recent diagnosis of atrial fibrillation In this emergency department, who complains of vague symptoms of weakness, aching pains, and generally not feeling well since last night. She states she was unable to sleep and was tossing and turning, just not feeling right and she came to the emergency room for evaluation where she was found to be in atrial fibrillation with a rapid ventricular response with heart rates in the 150s. This is a relatively recent diagnosis, Having been diagnosed with this 8 days ago on May 17. She was seen in the emergency room at that time for complaints of chest discomfort and was diagnosed with A. fib, was sent home on metoprolol 25 mg daily. She states that since that time she never really felt quite back to normal, having worsening shortness of breath with exertion, worse than her typical symptoms with COPD which does not typically require daily inhaler use or oxygen.She denies any recent flulike symptoms such as fever, chills, headache, cough, runny nose, nor does she have recent sick contacts or recent travel.She does however complain of a chronic intermittent diarrhea. Sites the recent diagnosis of A. fib, there are no known triggers and no sympto ms in her history to suggest triggers for atrial fibrillation rapid ventricular response. She does claim that she was compliant with medications at home.Next Labs did not show any significant abnormalities, most pertinent negative is negative troponin. In emergency department patient was given 2 doses of labetalol 5 mg IV followed by 1 dose of 15 mg of Cardizem IV and 60 mg of Cardizem p.o. Other results as below. This has successfully controlled the patient's heart rate to levels of 90-110 or 120 with blood pressures that are in the low 100s over 80s. Patient does feel better but is still somewhat symptomatic and feeling weak. She does not quite feel well enough to go home.She has not had a workup with echocardiogram in at least 2 years and does not have any plans at this point for a outpatient evaluation. History - Past Medical History Cardiovascular: reports: None, Hypertension, Other. 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 She moved here from [facility] in 2006 to be closer to her son. She did have a daughter who in 2011. - Substance History Use: Uses substance without health or social issues: NONE - POLST Patient has POLST: No POLST Status: Full Code Meds/Allgy - Home Medications Home Medications: Ambulatory Orders Medication Instructions Recorded Confirmed Famotidine 10 mg PO BID 03/23/13 02/24/17 Gabapentin [Neurontin] 100 mg PO QPM 02/23/17 02/23/17 Mirabegron [Myrbetriq] 25 mg PO DAILY 02/24/17 02/24/17 Lidocaine Viscous 2% [Xylocaine 5 ml PO Q4H PRN #100 ml 05/17/18 Viscous 2%] Metoprolol Succinate [Toprol Xl] 25 mg PO DAILY #30 tablet 05/17/18 Sucralfate [Carafate] 1 gm PO ACHS #40 tablet 05/17/18 - Allergies Allergies/Adverse Reactions: Allergies Allergy/AdvReac Type Severity Reaction Status Date / Time Penicillins Allergy Intermediate Hives Verified 05/25/18 17:13 omeprazole AdvReac Intermediate Rash Verified 05/25/18 17:13 Review of Systems - Constitutional Constitutional: reports: Fatigue, Malaise, Weakness. denies: Fever, Chills, Diaphoresis, Night sweats - Ears, Nose & Throat Ears, Nose & Throat: reports: Nosebleeds. denies: Ear pain, Nasal discharge, Nasal congestion, Postnasal drainage, Sore throat - Cardiovascular Cariovascular: reports: Irregular heart rate, Palpitations, Lightheadedness, Exertional dyspnea, Decr. exercise tolerance. denies: Chest pain, Edema, Syncope, Orthopnea - Respiratory Respiratory: reports: SOB at rest, SOB with exertion. denies: Cough, Sputum production, Wheezing - Gastrointestinal Gastrointestinal: reports: Diarrhea (Patient reports chronic intermittent diarrhea but no changes recently from). denies: Abdominal pain, Abdominal distention, Constipation, Change in bowel habits - Genitourinary Genitourinary: denies: Dysuria - Musculoskeletal Musculoskeletal: reports: Joint pain - Integumentary Integumentary: denies: Rash - Neurological Neurological: reports: General weakness. denies: Focal weakness, Headache, Dizziness, Incoordination, Slurred speech - All Other Systems All Other Systems: reports: Reviewed and negative Prior Level of Functionality: Independent Exam - Vital Signs Reviewed Vital Signs: Yes Vital Signs: Vital Signs x48h Temp Pulse Resp BP Pulse Ox 05/25/18 19:30 84 17 109/84 H 96 05/25/18 19:23 78 110/72 05/25/18 19:19 63 106/69 05/25/18 19:13 70 105/73 05/25/18 19:05 124 H 138/94 H 05/25/18 18:45 118 H 132/70 H 05/25/18 18:37 130 H 125/104 H 05/25/18 18:32 136 H 124/71 05/25/18 18:17 133 H 105/74 05/25/18 18:02 124 H 119/69 05/25/18 17:57 122 H 122/74 05/25/18 17:51 111 H 119/83 H 05/25/18 17:46 126 H 23 140/88 H 95 05/25/18 16:55 37.1 C 116 H 16 109/72 100 Vital Signs - 24 hr 05/25/18 05/25/18 05/25/18 16:55 17:46 17:51 Temperature 37.1 C Heart Rate 116 H 126 H 111 H Respiratory 16 23 Rate Blood Pressure 109/72 140/88 H 119/83 H O2 Saturation 100 95 05/25/18 05/25/18 05/25/18 17:57 18:02 18:17 Temperature Heart Rate 122 H 124 H 133 H Respiratory Rate Blood Pressure 122/74 119/69 105/74 O2 Saturation 1205/25/18 05/25/18 18:32 18:37 18:45 Temperature Heart Rate 136 H 130 H 118 H Respiratory Rate Blood Pressure 124/71 125/104 H 132/70 H O2 Saturation 05/25/18 05/25/18 05/25/18 19:05 19:13 19:19 Temperature Heart Rate 124 H 70 63 Respiratory Rate Blood Pressure 138/94 H 105/73 106/69 O2 Saturation 05/25/18 05/25/18 05/25/18 19:23 19:30 20:00 Temperature Heart Rate 78 84 91 Respiratory 17 17 Rate Blood Pressure 110/72 109/84 H 126/81 H O2 Saturation 96 99 Oxygen O2 Source Room air - Physical Exam General Appearance: positive: No acute distress Eyes Bilateral: positive: Normal inspection ENT: positive: ENT inspection nml Neck: positive: Nml inspection Respiratory: positive: Chest non-tender Cardiovascular: positive: No murmur, No gallop, Irregularly irregular. negative: Extrasystoles, Tachycardia, Bradycardia, JVD present, Systolic murmur, Diastolic murmur Peripheral Pulses: positive: 2+ Abdomen: positive: Non-tender, No organomegaly, Nml bowel sounds, No distention Rectal: positive: Non-tender Skin: positive: Color nml Extremities: positive: Non-tender, Full ROM, Nml appearance, No pedal edema Neurologic/Psychiatric: positive: Oriented x3, CN's nml (2-12) Conclusion/Plan - Problem List (1) Atrial fibrillation with rapid ventricular response Conclusion/Plan: Patient is certainly in atrial fibrillation with rapid ventricular response with a recent diagnosis of A. fib. The underlying etiology is unclear at this pointShe does not have evidence of pneumonia on chest x-ray, she is not hypoxic, she denies recent flulike symptoms, and there are no EKG changes and troponin is negative. She does have a history of chronic diarrhea and it would not be unreasonable for have a mildly's asymptomatic UTI, so we will add a urinalysis to make sure this is not contributing given that she does complain of weakness which is very vague and of complaint of multiple different etiologies. Otherwise in the emergency room she did respond pretty well to metoprolol and Cardizem, not requiring a drip and in fact she is rate controlled at this point at the time of admission and already transitioned to p.o. Cardizem. However, given this is a recent diagnosis and she is not had an echocardiogram, and there is not very much data to confirm her pattern of heart rate and blood pressure may be helpful to have her observed for 1-2 days in order to better predict her appropriate outpatient regimen and also again for the echocardiogram. She will be on heparin for DVT prophylaxis, and will likely need to be put on warfarin, or another anticoagulant at discharge depending on her insurance c overage. (2) HTN (hypertension) Conclusion/Plan: Patient recently had the diagnosis of atrial fibrillation leading to discontinuation of losartan. Right now her blood pressure is well controlled after several doses of labetalol and Cardizem. We will continue the metoprolol and Cardizem for now, monitoring blood pressure and adjusting as necessary. Qualifiers: Hypertension type: essential hypertension Qualified Code(s): I10 - Essential (primary) hypertension (3) History of COPD Conclusion/Plan: Patient has not used her rescue inhaler in some time and does not use daily inhaler. She also does not require oxygen at home. Will monitor, and if necessary provide as needed nebulizer treatments. - Lab Results Lab results reviewed: Yes Dominick Bones: 05/25/18 17:40 05/25/18 17:40 - Diagnostic Imaging Results Diagnostic Imaging Results: positive: Final report reviewed - EKG Results EKG Interpreted Independently: Yes EKG Comparison: Unchanged from prior EKG Core Measures - Anticipated LOS I expect patient to be DC'd or transferred within 96 hours.: Yes - DVT/VTE - Prophylaxis VTE/DVT Device ordered at admit?: Yes
[2018-05-25] MEDS ORDERED: HEPARIN 5,000 UNIT/ML VIAL IVP SCH (21:00)
[2018-05-25] MEDS: HEPARIN 5,000 UNIT/ML VIAL SUBQ SCH (21:36)
[2018-05-26] MEDS: SODIUM CHLORIDE FLUSH 0.9% 10 ML SYRINGE IVP SCH ×4 (00:16→23:37)
[2018-05-26] MEDS: MORPHINE 2 MG/ML CARPUJECT IVP PRN ×2 (04:30→04:50)
[2018-05-26] MEDS: SODIUM CHLORIDE FLUSH 0.9% 10 ML SYRINGE IVP PRN (04:50)
[2018-05-26] MEDS: HYDROcod/ACETAM 5/325 MG TABLET PO PRN ×2 (05:18→12:12)
[2018-05-26 06:39] LABS: BILIRUBIN,URINE NEGATIVE (NEGATIVE); GLUCOSE, URINE (UA) NEGATIVE (NEGATIVE); KETONES,URINE (UA) NEGATIVE (NEGATIVE); LEUKOCYTE ESTERASE, URINE NEGATIVE (NEGATIVE); NITRITE,URINE NEGATIVE (NEGATIVE); OCCULT BLOOD,URINE NEGATIVE (NEGATIVE); PROTEIN,URINE NEGATIVE (NEGATIVE); UROBILINOGEN,URINE 0.2 (NORMAL) E.U./dL (NORMAL)
[2018-05-26 06:40] LABS: CLARITY,URINE CLEAR (CLEAR)
[2018-05-26] MEDS ORDERED: diltiaZEM 30 MG TABLET PO SCH (09:00)
[2018-05-26 09:08] LABS: BASOPHILS # (AUTO) 0.1 10^3/uL (0.0-0.1); BASOPHILS % (AUTO) 1.7 %; EOSINOPHILS % (AUTO) 0.7 %; HGB - HEMOGLOBIN 10.5 g/dL (12.0-16.0); LYMPHOCYTES # (AUTO) 2.4 10^3/uL (1.5-3.5); MEAN CORPUSCULAR HEMOGLOBIN 27.2 pg (27.0-31.0); MEAN CORPUSCULAR VOLUME 82.6 fL (81.0-99.0); MEAN PLATELET VOLUME 9.3 fL (7.9-10.8); MONOCYTES # (AUTO) 0.7 10^3/uL (0.0-1.0); MONOCYTES % (AUTO) 10.4 %; NEUTROPHILS # (AUTO) 3.7 10^3/uL (1.5-6.6); NEUTROPHILS % (AUTO) 53.2 %; RED BLOOD COUNT 3.85 10^6/uL (4.20-5.40); RED CELL DISTRIBUTION WIDTH 16.4 % (12.0-15.0)
[2018-05-26 09:25] LABS: ALBUMIN 3.4 g/dL (3.2-5.5); BILIRUBIN,TOTAL 1.2 mg/dL (0.2-1.0); CALCIUM 8.3 mg/dL (8.5-10.3); CREATININE 0.8 mg/dL (0.4-1.0); MAGNESIUM 1.5 mg/dL (1.7-2.8); TOTAL PROTEIN 6.8 g/dL (6.7-8.2)
[2018-05-26 09:30] LABS: PLATELET MORPHOLOGY PLATELET CLUMPING (NORMAL)
--- NOTE | 2018-05-26 09:53 | Ultrasound Report ---
Reason: abdominal pain Procedure Date: 05/26/2018 Accession Number: [id number] / [id number] Procedure: US - Abdomen Complete CPT Code: FULL RESULT: EXAM: ABDOMEN ULTRASOUND EXAM DATE: 05/26/2018 08:54 AM. CLINICAL HISTORY: Abdominal pain. COMPARISON: None. TECHNIQUE: Real-time scanning was performed with static images obtained. FINDINGS: Liver: Mildly coarsened echotexture. Liver measures at least 15.2 cm. Main portal vein flow: Hepatopetal. Gallbladder: Status post cholecystectomy. Biliary System: Common bile duct measures 6.5 mm. No intrahepatic or extrahepatic ductal dilatation. Pancreas: Visualized portion is unremarkable. Kidneys: Right: 10 cm longitudinally. Normal. No contour-deforming mass, stones, or hydronephrosis. Left: 10.5 cm longitudinally. Normal. No contour-deforming mass, stones, or hydronephrosis. Spleen: 8.7 cm. Normal in size and echotexture. Aorta and Inferior Vena Cava: Unremarkable. Other: None. IMPRESSION: Status post cholecystectomy with no intrahepatic or extrahepatic biliary ductal dilation. RADIA
[2018-05-26] MEDS: METOPROLOL SUCCINATE 50 MG TABLET PO SCH (10:16)
[2018-05-26] MEDS: HEPARIN 5,000 UNIT/ML VIAL SUBQ SCH (10:16)
[2018-05-26] MEDS: POLYETHYLENE GLYCOL 3350 17 GM PACKET PO SCH (10:17)
[2018-05-26] MEDS: SUCRALFATE 1 GM/10 ML UDC PO SCH ×3 (10:18→20:37)
[2018-05-26] MEDS ORDERED: MAGNESIUM SULFATE 1 GM in SODIUM CHLORIDE 0.9% 50 ML IV ONE (10:36)
[2018-05-26] MEDS ORDERED: traMADol 50 MG TABLET PO PRN (11:42)
[2018-05-26] MEDS ORDERED: MAGNESIUM SULFATE 2 GRAM 0 GM/0 ML BAG IV ONE (12:20)
--- NOTE | 2018-05-26 16:24 | PROVIDER PROGRESS NOTE ---
Subjective - Prog Note Date Prog Note Date: 05/26/18 - Subjective Pt reports feeling: Worse Subjective: pt continue complain of abdominal pain. she denies nausea, vomiting, diarrhea, fever,chill, chest pain, SOB Current Medications - Current Medications Current Medications: Active Medications Acetaminophen (Tylenol) 650 mg PO Q4HR PRN PRN Reason: Pain 1 to 4 Last Admin: 05/26/18 02:12 Dose: 650 mg Hydrocodone Bitart/Acetaminophen ([place] 5/325) 1 tab PO Q4HR PRN PRN Reason: Pain 5 to 7 Last Admin: 05/26/18 12:12 Dose: 1 tab Gabapentin (Neurontin) 100 mg PO QPM [facility] Heparin Sodium (Porcine) () 5,000 unit SUBQ BID [facility] Last Admin: 05/26/18 10:16 Dose: Not Given Metoprolol Succinate (Toprol Xl) 50 mg PO DAILY [facility] Last Admin: 05/26/18 10:16 Dose: 50 mg Metoprolol Tartrate (Lopressor Inj) 5 mg IVP Q2H PRN PRN Reason: Tachycardia Morphine Sulfate (Morphine (Carpuject)) 2 mg IVP Q2HR PRN PRN Reason: Pain 8 to 10 Last Admin: 05/26/18 04:30 Dose: 1.5 mg Polyethylene Glycol (Miralax) 17 gm PO DAILY [facility] Last Admin: 05/26/18 10:17 Dose: Not Given Sodium Chloride (Normal Saline Flush 0.9%) 10 ml IVP PRN PRN PRN Reason: NEEDED PER PROVIDER ORDERS Last Admin: 05/26/18 04:50 Dose: 10 ml Sodium Chloride (Normal Saline Flush 0.9%) 10 ml IVP 0100,0900,1700 [facility] Last Admin: 05/26/18 10:17 Dose: 10 ml Sucralfate (Carafate) 1 gm PO ACHS [facility] Last Admin: 05/26/18 16:07 Dose: 1 gm Zolpidem Tartrate (Ambien) 5 mg PO QPM PRN PRN Reason: Insomnia Famotidine 10 mg PO BID 03/23/13 Gabapentin [Neurontin] 300 mg PO QPM 02/23/17 Mirabegron [Myrbetriq] 50 mg PO DAILY 02/24/17 Aspirin [place] [[place] Aspirin] 81 mg PO DAILY 05/26/18 Cholecalciferol (Vitamin D3) [Vitamin D3] 5,000 unit PO DAILY 05/26/18 Losartan [Cozaar] 100 mg PO DAILY 05/26/18 Objective - Vital Signs/Intake & Output Reviewed Vital Signs: Yes Vital Signs: Vital Signs x48h Temp Pulse Resp BP BP Pulse Ox 05/26/18 15:23 36.3 C L 71 18 99/60 97 05/26/18 13:09 36.5 C 64 18 94/61 95 05/26/18 10:16 129/80 Intake & Output: Intake & Output 05/23/18 05/24/18 05/25/18 05/26/18 23:59 23:59 23:59 23:59 Intake Total 500 1300 Output Total 650 Balance 500 650 - Objective General Appearance: positive: No acute distress, Alert. negative: Lethargic Eyes Bilateral: positive: Normal inspection, PERRL, No lid inflammation, Conjunctivae nml ENT: positive: ENT inspection nml, Pharynx nml, No signs of dehydration. negative: Purulent nasal drainage, Pharyngeal erythema, Oral lesions Neck: positive: Nml inspection, Thyroid nml, No JVD, Trachea midline. negative: Thyromegaly, Lymphadenopathy (R), Lymphadenopathy (L), Stiff neck, Swelling/bruising, Tracheal deviation Respiratory: positive: Chest non-tender, No respiratory distress, Breath sounds nml. negative: Wheezes, Rales, Rhonchi Cardiovascular: positive: Regular rate & rhythm, No murmur, No gallop. negative: Irregularly irregular, Extrasystoles, Tachycardia, Bradycardia, JVD present, Systolic murmur, Diastolic murmur Peripheral Pulses: 2+ Radial (R), 2+ Radial (L), 2+ Dorsalis pedis (R), 2+ Dorsalis pedis (L) Abdomen: positive: Non-tender, No organomegaly, Nml bowel sounds, No distention. negative: Tenderness, Guarding, Rebound Back: positive: Nml inspection. negative: CVA tenderness (R), CVA tenderness (L) Skin: positive: Color nml, No rash, Warm, Dry. negative: Cyanosis, Diaphoresis, Pallor Extremities: positive: Non-tender, Full ROM, Nml appearance. negative: Calf tenderness, Joint swelling, Daisy's sign/cords Neurologic/Psychiatric: positive: Oriented x3, Motor nml, Sensation nml, Mo od/affect nml. negative: Weakness, Sensory loss, Facial droop, Slurred/abnml speech, Depressed mood/affect - Lab Results Fish Bones: 05/26/18 09:00 05/26/18 09:00 Other Labs: Lab Results x24hrs 05/26/18 05/26/18 05/26/18 Range/Units 09:00 09:00 09:00 WBC 7.0 (4.8-10.8) x10^3/uL RBC 3.85 L (4.20-5.40) 10^6/uL Hgb 10.5 L (12.0-16.0) g/dL Hct 31.8 L (37.0-47.0) % MCV 82.6 (81.0-99.0) fL MCH 27.2 (27.0-31.0) pg MCHC 33.0 (32.0-36.0) g/dL RDW 16.4 H (12.0-15.0) % Plt Count (130-450) 10^3/uL MPV 9.3 (7.9-10.8) fL Neut # (Auto) 3.7 (1.5-6.6) 10^3/uL Lymph # (Auto) 2.4 (1.5-3.5) 10^3/uL [place] # (Auto) 0.7 (0.0-1.0) 10^3/uL Eos # (Auto) 0.0 (0.0-0.7) 10^3/uL Baso # (Auto) 0.1 (0.0-0.1) 10^3/uL Absolute Nucleated RBC 0.00 x10^3/uL Nucleated RBC % 0.0 /100WBC Manual Slide Review WBC Morphology (NORMAL) Platelet Estimate (NORMAL) Platelet Morphology PLATELET CLUMPING (NORMAL) RBC Morph Micro Appear (NORMAL) Sodium 139 (135-145) mmol/L Potassium 3.6 (3.5-5.0) mmol/L Chloride 108 (101-111) mmol/L Carbon Dioxide 20 L (21-32) mmol/L Anion Gap 11.0 (6-13) BUN 16 (6-20) mg/dL Creatinine 0.8 (0.4-1.0) mg/dL Estimated GFR (MDRD) 69 L (>89) Glucose 89 (70-100) mg/dL Calcium 8.3 L (8.5-10.3) mg/dL Magnesium 1.5 L (1.7-2.8) mg/dL Total Bilirubin 1.2 H (0.2-1.0) mg/dL AST 15 (10-42) IU/L ALT 11 (10-60) IU/L Alkaline Phosphatase 76 (42-121) IU/L Troponin I < 0.04 (<0.49) ng/mL Total Protein 6.8 (6.7-8.2) g/dL Albumin 3.4 (3.2-5.5) g/dL Globulin 3.4 (2.1-4.2) g/dL Albumin/Globulin Ratio 1.0 (1.0-2.2) Lipase (22-51) U/L TSH (0.34-5.60) uIU/mL Urine Color Urine Clarity (CLEAR) Urine pH (5.0-7.5) PH Ur Specific [place] (1.002-1.030) Urine Protein (NEGATIVE) mg/dL Urine Glucose (UA) (NEGATIVE) mg/dL Urine Ketones (NEGATIVE) mg/dL Urine Occult Blood (NEGATIVE) Urine Nitrite (NEGATIVE) Urine Bilirubin (NEGATIVE) Urine Urobilinogen (NORMAL) E.U./dL Ur Leukocyte Esterase (NEGATIVE) Ur Microscopic Review 05/25/18 05/25/18 05/25/18 Range/Units 17:40 17:40 17:40 WBC (4.8-10.8) x10^3/uL RBC (4.20-5.40) 10^6/uL Hgb (12.0-16.0) g/dL Hct (37.0-47.0) % MCV (81.0-99.0) fL MCH (27.0-31.0) pg MCHC (32.0-36.0) g/dL RDW (12.0-15.0) % Plt Count (130-450) 10^3/uL MPV (7.9-10.8) fL Neut # (Auto) (1.5-6.6) 10^3/uL Lymph # (Auto) (1.5-3.5) 10^3/uL [place] # (Auto) (0.0-1.0) 10^3/uL Eos # (Auto) (0.0-0.7) 10^3/uL Baso # (Auto) (0.0-0.1) 10^3/uL Absolute Nucleated RBC x10^3/uL Nucleated RBC % /100WBC Manual Slide Review WBC Morphology (NORMAL) Platelet Estimate (NORMAL) Platelet Morphology (NORMAL) RBC Morph Micro Appear (NORMAL) Sodium 137 (135-145) mmol/L Potassium 3.5 (3.5-5.0) mmol/L Chloride 103 (101-111) mmol/L Carbon Dioxide 24 (21-32) mmol/L Anion Gap 10.0 (6-13) BUN 15 (6-20) mg/dL Creatinine 0.9 (0.4-1.0) mg/dL Estimated GFR (MDRD) 60 L (>89) Glucose 111 H (70-100) mg/dL Calcium 9.5 (8.5-10.3) mg/dL Magnesium (1.7-2.8) mg/dL Total Bilirubin 0.9 (0.2-1.0) mg/dL AST 17 (10-42) IU/L ALT 12 (10-60) IU/L Alkaline Phosphatase 89 (42-121) IU/L Troponin I < 0.04 (<0.49) ng/mL Total Protein 7.7 (6.7-8.2) g/dL Albumin 3.9 (3.2-5.5) g/dL Globulin 3.8 (2.1-4.2) g/dL Albumin/Globulin Ratio 1.0 (1.0-2.2) Lipase 40 (22-51) U/L TSH 3.74 (0.34-5.60) uIU/mL Urine Color Urine Clarity (CLEAR) Urine pH (5.0-7.5) PH Ur Specific [place] (1.002-1.030) Urine Protein (NEGATIVE) mg/dL Urine Glucose (UA) (NEGATIVE) mg/dL Urine Ketones (NEGATIVE) mg/dL Urine Occult Blood (NEGATIVE) Urine Nitrite (NEGATIVE) Urine Bilirubin (NEGATIVE) Urine Urobilinogen (NORMAL) E.U./dL Ur Leukocyte Esterase (NEGATIVE) Ur Microscopic Review 05/25/18 05/25/18 Range/Units 17:40 17:00 WBC 8.8 (4.8-10.8) x10^3/uL RBC 4.20 (4.20-5.40) 10^6/uL Hgb 11.2 L (12.0-16.0) g/dL Hct 35.3 L (37.0-47.0) % MCV 84.0 (81.0-99.0) fL MCH 26.7 L (27.0-31.0) pg MCHC 31.8 L (32.0-36.0) g/dL RDW 16.5 H (12.0-15.0) % Plt Count 180 (130-450) 10^3/uL MPV 9.1 (7.9-10.8) fL Neut # (Auto) 6.3 (1.5-6.6) 10^3/uL Lymph # (Auto) 1.6 (1.5-3.5) 10^3/uL [place] # (Auto) 0.8 (0.0-1.0) 10^3/uL Eos # (Auto) 0.0 (0.0-0.7) 10^3/uL Baso # (Auto) 0.0 (0.0-0.1) 10^3/uL Absolute Nucleated RBC 0.00 x10^3/uL Nucleated RBC % 0.0 /100WBC Manual Slide Review Indicated WBC Morphology NORMAL APPEARANCE (NORMAL) Platelet Estimate NORMAL (130-450,000) (NORMAL) Platelet Morphology 1+ LARGE PLATELETS (NORMAL) RBC Morph Micro Appear 1+ POLYCHROMASIA (NORMAL) Sodium (135-145) mmol/L Potassium (3.5-5.0) mmol/L Chloride (101-111) mmol/L Carbon Dioxide (21-32) mmol/L Anion Gap (6-13) BUN (6-20) mg/dL Creatinine (0.4-1.0) mg/dL Estimated GFR (MDRD) (>89) Glucose (70-100) mg/dL Calcium (8.5-10.3) mg/dL Magnesium (1.7-2.8) mg/dL Total Bilirubin (0.2-1.0) mg/dL AST (10-42) IU/L ALT (10-60) IU/L Alkaline Phosphatase (42-121) IU/L Troponin I (<0.49) ng/mL Total Protein (6.7-8.2) g/dL Albumin (3.2-5.5) g/dL Globulin (2.1-4.2) g/dL Albumin/Globulin Ratio (1.0-2.2) Lipase (22-51) U/L TSH (0.34-5.60) uIU/mL Urine Color YELLOW Urine Clarity CLEAR (CLEAR) Urine pH 6.0 (5.0-7.5) PH Ur Specific [place] 1.015 (1.002-1.030) Urine Protein NEGATIVE (NEGATIVE) mg/dL Urine Glucose (UA) NEGATIVE (NEGATIVE) mg/dL Urine Ketones NEGATIVE (NEGATIVE) mg/dL Urine Occult Blood NEGATIVE (NEGATIVE) Urine Nitrite NEGATIVE (NEGATIVE) Urine Bilirubin NEGATIVE (NEGATIVE) Urine Urobilinogen 0.2 (NORMAL) (NORMAL) E.U./dL Ur Leukocyte Esterase NEGATIVE (NEGATIVE) Ur Microscopic Review NOT INDICATED ABX Reporting Has patient been on IV antibiotics over the past 48 hours?: No Sepsis Event Note (H) - Evaluation Current Stage of Sepsis: Ruled out Assessment/Plan - Problem List (1) Atrial fibrillation with rapid ventricular response Impression: pt took 25mg Metoprolol at home, but not controlled. increase to 5o mg Metoprolol, HR is 71, SBP 99 now add Eliquis now, her CHADSVAS score is 4.8%. employment case manager see pt tomorrow if insurance cover (2) abdominal pain pt continue complaint of right upper abdominal pain. US reveals unremarkable order CT of abdomen, will followup pain control (3) hypotension her initially SBP is 94, now back to SBP 99 hold Losartan, precaution of Metoprolol for Afib RVR control of heart rate (4) History of COPD stable, add Duoneb PRN
[2018-05-26] MEDS ORDERED: IPRATROPIUM/ALBUTEROL 3 ML NEB INH PRN (16:48)
[2018-05-26] MEDS ORDERED: IOVERSOL 320 100 ML VIAL IVP ONE ×3 (17:50→21:49)
[2018-05-26] MEDS ORDERED: IOVERSOL 320 50 ML VIAL PO ONE (18:21)
[2018-05-26] MEDS ORDERED: IOVERSOL 320 50 ML VIAL ONE (18:26)
--- NOTE | 2018-05-26 20:43 | CT Report ---
Reason: right upper abdominal pain Procedure Date: 05/26/2018 Accession Number: [id number] / [id number] Procedure: CT - Abdomen/Pelvis W/ CPT Code: FULL RESULT: EXAM: CT ABDOMEN AND PELVIS EXAM DATE: 05/26/2018 07:41 PM. CLINICAL HISTORY: Right upper abdominal pain. COMPARISONS: ABDOMEN/PELVIS W/O 02/23/2017 2:42 PM. TECHNIQUE: Routine helical CT imaging was performed through the abdomen and pelvis. IV contrast: 50 ML OPTIRAY 320. Enteric contrast: No. Reconstructions: Coronal and sagittal. In accordance with CT protocol optimization, one or more of the following dose reduction techniques were utilized for this exam: automated exposure control, adjustment of mA and/or KV based on patient size, or use of iterative reconstructive technique. FINDINGS: ABDOMEN: Lung Bases: Incompletely included lower lungs demonstrate a peripheral area of consolidation measuring 3.5 cm with a foamy appearance in the right lower lobe. The associated subsegmental pulmonary artery does not appear to be opacified. Small right pleural effusion. Heart size is within normal limits. No basilar effusions. Liver: Unremarkable. Spleen: Unremarkable. Pancreas: Unremarkable. Gallbladder/Bile Ducts: Status post cholecystectomy. Biliary tree is normal caliber. Adrenal Glands: Unremarkable. Kidneys: No mass, calculi, or hydronephrosis. Peritoneum/Mesentery/Bowel: No free fluid, free air, or collection. No intestinal obstruction or inflammation. The appendix is within normal limits. Lymph nodes: No mesenteric, periportal, or retroperitoneal lymphadenopathy. Vasculature: Infrarenal abdominal aortic aneurysm measuring 3.1 cm with mural thrombus. Portal vein is patent. Hepatic veins are patent. PELVIS: The bladder is unremarkable for the degree of distention. Status post hysterectomy. No pelvic lymphadenopathy. Bones: No suspicious osseous lesions. IMPRESSION: No acute intra-abdominal abnormalities. Peripheral area of consolidation with a foamy appearance in the right lower lobe. The associated pulmonary artery does not appear to be opacified. Evaluation is suboptimal due to the timing optimized for abdominal CT and thick sections. CTPA is recommended to assess for pulmonary embolus and infarction. RADIA The above findings were discussed with Dr Santos by Dr. Osiel Greene at 20:42 hrs on 05/26/18.
[2018-05-26] MEDS ORDERED: APIXABAN 5 MG TABLET PO SCH (21:00)
[2018-05-26] MEDS ORDERED: GABAPENTIN 100 MG CAPSULE PO SCH (21:00)
[2018-05-26] MEDS ORDERED: SODIUM CHLORIDE 0.9% 1,000 ML IV ONE (21:53)
--- NOTE | 2018-05-27 02:03 | CT Report ---
Reason: Finding on abd CT possible Pulm infarct (PE) Procedure Date: 05/27/2018 Accession Number: [id number] / [id number] Procedure: CT - Chest Angio (PE) CPT Code: FULL RESULT: EXAM: CT ANGIOGRAM CHEST EXAM DATE: 05/27/2018 12:51 AM. CLINICAL HISTORY: Finding on abd CT possible Pulm infarct (PE). COMPARISON: CHEST ANGIO 08/13/2015 5:00 PM ABDOMEN/PELVIS W/ 05/26/2018 7:41 PM. TECHNIQUE: Routine helical imaging was performed through the chest in the pulmonary arterial phase. IV Contrast: 70 ML OPTIRAY 320. Reconstructions: Coronal 3-D MIP reconstructions.Sagittal and coronal. In accordance with CT protocol optimization, one or more of the following dose reduction techniques were utilized for this exam: automated exposure control, adjustment of mA and/or KV based on patient size, or use of iterative reconstructive technique. FINDINGS: Pulmonary Arteries: Diagnostic quality: Adequate through the segmental arteries. No pulmonary emboli are seen through the segmental branches. A few tiny subsegmental pulmonary emboli are suspected in the right lung. No evidence of right heart strain. Lungs/Pleura: Motion artifact. Right lower lobe atelectasis, infiltrate, or pulmonary infarct. Small right pleural effusion. No pneumothorax. Mediastinum: Heart size is normal to upper normal. Small hiatal hernia. Coronary artery calcifications. Normal sized mediastinal lymph nodes. Thoracic Aorta: Moderate atherosclerosis. Not well enhanced. Upper Abdomen: Unremarkable. Other: None. IMPRESSION: 1. No pulmonary emboli are seen through the segmental branches. There probably are a few tiny subsegmental emboli in the right lung. 2. Right lower lobe atelectasis, infiltrate, or pulmonary infarct with small right pleural effusion. 3. Coronary artery calcifications. 4. Small hiatal hernia. 5. Nonspecific normal-sized mediastinal lymph nodes. RADIA The above findings were discussed with Kiran Santos by Dr. Elias Santana at 02:01 hrs on 05/27/18.
[2018-05-27 06:42] LABS: BASOPHILS # (AUTO) 0.1 10^3/uL (0.0-0.1); BASOPHILS % (AUTO) 1.1 %; EOSINOPHILS # (AUTO) 0.1 10^3/uL (0.0-0.7); HGB - HEMOGLOBIN 9.7 g/dL (12.0-16.0); LYMPHOCYTES # (AUTO) 1.8 10^3/uL (1.5-3.5); LYMPHOCYTES % (AUTO) 31.9 %; MEAN CORPUSCULAR HEMOGLOBIN 26.8 pg (27.0-31.0); MEAN CORPUSCULAR HGB CONC 31.9 g/dL (32.0-36.0); MEAN PLATELET VOLUME 9.5 fL (7.9-10.8); MONOCYTES # (AUTO) 0.6 10^3/uL (0.0-1.0); MONOCYTES % (AUTO) 10.8 %; NEUTROPHILS # (AUTO) 3.1 10^3/uL (1.5-6.6); NEUTROPHILS % (AUTO) 54.2 %; PLT - PLATELET COUNT 155 10^3/uL (130-450); RED BLOOD COUNT 3.61 10^6/uL (4.20-5.40); RED CELL DISTRIBUTION WIDTH 16.5 % (12.0-15.0); WHITE BLOOD COUNT 5.8 x10^3/uL (4.8-10.8)
[2018-05-27] MEDS: SUCRALFATE 1 GM/10 ML UDC PO SCH ×2 (06:45→10:41)
[2018-05-27 06:49] LABS: ALBUMIN 3.2 g/dL (3.2-5.5); CALCIUM 8.4 mg/dL (8.5-10.3); CREATININE 0.8 mg/dL (0.4-1.0); MAGNESIUM 1.5 mg/dL (1.7-2.8); TOTAL PROTEIN 6.3 g/dL (6.7-8.2)
[2018-05-27] MEDS ORDERED: MAGNESIUM SULFATE 2 GRAM 2 GM/50 ML BAG IV ONE (07:51)
[2018-05-27 08:14] VITALS: BP 143/88
[2018-05-27 08:35] LABS: MEAN RETIC VALUE 110.6; RED BLOOD COUNT 3.6 10^6/uL (4.20-5.40)
[2018-05-27 08:41] LABS: % IRON SATURATION 6 % (20-50); IRON 26 ug/dL (28-170); TOTAL IRON BINDING CAPACITY 405 ug/dL (250-450); TRANSFERRIN 289 mg/dL (192-382)
[2018-05-27 08:42] LABS: FERRITIN 17.2 ng/mL (11.0-306.8)
[2018-05-27] MEDS: SODIUM CHLORIDE FLUSH 0.9% 10 ML SYRINGE IVP SCH (08:54)
[2018-05-27] MEDS ORDERED: FERROUS SULFATE 325 MG TABLET PO SCH (09:00)
[2018-05-27] MEDS ORDERED: APIXABAN 5 MG TABLET PO SCH (09:00)
[2018-05-27] MEDS: METOPROLOL SUCCINATE 50 MG TABLET PO SCH (09:12)
[2018-05-27] MEDS: POLYETHYLENE GLYCOL 3350 17 GM PACKET PO SCH (09:18)
[2018-05-27] MEDS: SODIUM CHLORIDE FLUSH 0.9% 10 ML SYRINGE IVP PRN (10:13)
--- NOTE | 2018-05-27 11:38 | Discharge Plan ---
Discharge Plan Disposition: Home, Self Care Condition: Poor Prescriptions: Albuterol Sulfate [Proventil Hfa Inhaler] 1 - 2 puffs INH Q4H PRN #1 inhaler PRN Reason: Shortness Of Air/Wheezing Apixaban [Eliquis] 10 mg PO BID #60 tablet Diet: Regular Activity Restrictions: Activity as Tolerated Shower Restrictions: No (fall precaution) Instruction Topics: Apixaban oral tablets, Embolism Pulmonary Additional Instructions or Follow Up instructions: you may followup your PCP in one week, followup sales team leader as out-pt. You are found to have a few small subsegmental of emboli at right lung, your Eliquis dosage is increased to 10mg Bid. Should your symptoms return or worsen, you may present ER, call 911 or your PCP for help. No Smoking: If you smoke, Please STOP! Call for help. Follow-up with: Mich Patten MD [Primary Care Provider] -
--- NOTE | 2018-05-27 11:48 | DISCHARGE SUMMARY ---
Discharge Summary Discharge Date: 05/27/18 Discharging Provider: Robert Colbert Primary Care Provider: Mich Quezada Condition at Discharge: Poor Discharge Disposition: 01 Home, Self Care Discharge Facility Name: home - DIAGNOSES Admission Diagnoses: (1) Atrial fibrillation with rapid ventricular response (2) HTN (hypertension) (3) History of COPD Discharge Diagnoses with Status of Each Condition: (1) Atrial fibrillation with rapid ventricular response stable, HR is below. pt denies any symptoms. Pt is prescribed 50mg metoprolol. pt also is prescribed Xarelto for her CHADVAS 4.8% stroke risks. followup PCP continue management (2) HTN (hypertension) stable, continue home regimen, followup PCP (3) History of COPD stable. pt request refill of albuterol inha (4) PE pt was found to have small segmental PE. Xarelto was prescribed to pt. Pt's insurance will cover for this meds pt state she had lots of iron and B12 pills, she did not need new prescribe for that I discussed with pt about the new finding for CTA of her chest, advise pt closely followup her loss control consultant for small PE and possible pulmonary infarction. pt state she understand and will followup. I discuss all medications's effects and side effect for pt, pt state she understand. - HPI History of Present Illness: refer from Dr. Santos's HPI on 05/25/18 for pt as the following: Patient is an 83-year-old female with past medical history of COPD, GERD, and a recent diagnosis of atrial fibrillation In this emergency department, who complains of vague symptoms of weakness, aching pains, and generally not feeling well since last night. She states she was unable to sleep and was tossing and turning, just not feeling right and she came to the emergency room for evaluation where she was found to be in atrial fibrillation with a rapid ventricular response with heart rates in the 150s. This is a relatively recent diagnosis, Having been diagnosed with this 8 days ago on May 17. She was seen in the emergency room at that time for complaints of chest discomfort and was diagnosed with A. fib, was sent home on metoprolol 25 mg daily. She states that since that time she never really felt quite back to normal, having worsening shortness of breath with exertion, worse than her typical symptoms with COPD which does not typically require daily inhaler use or oxygen.She denies any recent flulike symptoms such as fever, chills, headache, cough, runny nose, nor does she have recent sick contacts or recent travel.She does however complain of a chronic intermittent diarrhea. Sites the recent diagnosis of A. fib, there are no known triggers and no symp toms in her history to suggest triggers for atrial fibrillation rapid ventricular response. She does claim that she was compliant with medications at home.Next Labs did not show any significant abnormalities, most pertinent negative is negative troponin. In emergency department patient was given 2 doses of labetalol 5 mg IV followed by 1 dose of 15 mg of Cardizem IV and 60 mg of Cardizem p.o. Other results as below. This has successfully controlled the patient's heart rate to levels of 90-110 or 120 with blood pressures that are in the low 100s over 80s. Patient does feel better but is still somewhat symptomatic and feeling weak. She does not quite feel well enough to go home.She has not had a workup with echocardiogram in at least 2 years and does not have any plans at this point for a outpatient evaluation. - HOSPITAL COURSE Hospital Course: pt was admitted for fatigue, unfeeling well. pt was found new onset of Afib recently. pt present afib with RVR. pt's metoprolol dosage was increased. pt's HR is controlled. pt complain of some right upper quadrant. CTA reveals pt has right segmental PE. pt was prescribed Xarelto. the meds is covered by her insurance. - ALLERGIES Allergies/Adverse Reactions: Allergies Allergy/AdvReac Type Severity Reaction Status Date / Time Penicillins Allergy Intermediate Hives Verified 05/25/18 17:13 omeprazole AdvReac Intermediate Rash Verified 05/25/18 17:13 - MEDICATIONS Home Medications: Ambulatory Orders Medication Instructions Recorded Confirmed Famotidine 10 mg PO BID 03/23/13 05/26/18 Gabapentin [Neurontin] 300 mg PO QPM 02/23/17 05/26/18 Mirabegron [Myrbetriq] 50 mg PO DAILY 02/24/17 05/26/18 Sucralfate [Carafate] 1 gm PO ACHS #40 tablet 05/17/18 05/26/18 Aspirin Chewable [[place] 81 mg PO DAILY 05/26/18 05/26/18 Aspirin] Cholecalciferol (Vitamin D3) 5,000 unit PO DAILY 05/26/18 05/26/18 [Vitamin D3] Losartan [Cozaar] 100 mg PO DAILY 05/26/18 05/26/18 Albuterol Sulfate [Proventil Hfa 1 - 2 puffs INH Q4H PRN #1 inhaler 05/27/18 Inhaler] Metoprolol Succinate [Toprol Xl] 50 mg PO DAILY #30 tablet 05/27/18 Rivaroxaban [Xarelto] 20 mg PO DAILY #30 tablet 05/27/18 - PHYSICAL EXAM AT DISCHARGE General Appearance: positive: No acute distress, Alert. negative: Lethargic Eyes Bilateral: positive: Normal inspection, PERRL, No lid inflammation, Conjunctivae nml ENT: positive: ENT inspection nml, Pharynx nml, No signs of dehydration. negative: Purulent nasal drainage, Pharyngeal erythema, Oral lesions Neck: positive: Nml inspection, Thyroid nml, No JVD, Trachea midline. negative: Thyromegaly, Lymphadenopathy (R), Lymphadenopathy (L), Stiff neck, Swelling/bruising, Tracheal deviation Respiratory: positive: Chest non-tender, No respiratory distress, Breath sounds nml. negative: Wheezes, Rales, Rhonchi Cardiovascular: positive: Regular rate & rhythm, No murmur, No gallop. n egative: Irregularly irregular, Extrasystoles, Tachycardia, Bradycardia, JVD present, Systolic murmur, Diastolic murmur Peripheral Pulses: positive: 2+ Abdomen: positive: Non-tender, No organomegaly, Nml bowel sounds, No distention. negative: Tenderness, Guarding, Rebound Back: positive: Nml inspection, CVA tenderness (L). negative: CVA tenderness (R) Skin: positive: Color nml, No rash, Warm, Dry. negative: Cyanosis, Diaphoresis, Pallor, Puncture wound, Embolic lesions Extremities: positive: Non-tender, Full ROM, Nml appearance. negative: Calf tenderness, Joint swelling, Daisy's sign/cords Neurologic/Psychiatric: positive: Oriented x3, Motor nml, Sensation nml, Mood/affect nml. negative: Weakness, Sensory loss, Facial droop, Slurred/abnml speech, Depressed mood/affect - LABS Result Diagrams: 05/27/18 06:05 05/27/18 06:05 - SEPSIS Current Stage of Sepsis: Ruled out - FOLLOW UP Follow Up: you may followup your PCP in one week, followup loss control consultant as out-pt. You are found to have a few small subsegmental of emboli at right lung, your Eliquis dosage is increased to 10mg Bid. Should your symptoms return or worsen, you may present ER, call 911 or your PCP for help. - TIME SPENT Time Spent in Discharge (Minutes): 50
[2018-05-27] MEDS ORDERED: CYANOCOBALAMIN 500 MCG TABLET PO SCH (12:00)
== END 2018-05-27 13:00 | disposition home or self-care (01) | DRG 308 ==
LOC: ED 16:50 → MS2 20:00 → OBSVTOIN 05-26 15:42
PROVIDERS: ADMIT Family Medicine Sports Medicine; ATTEND Nurse Practitioner Gerontology
DX: I48.91 Unspecified atrial fibrillation (principal); I26.99 Other pulmonary embolism without acute cor pulmonale; K52.9 Noninfective gastroenteritis and colitis, unspecified; J43.9 Emphysema, unspecified; I95.9 Hypotension, unspecified; Z87.891 Personal history of nicotine dependence; J44.9 Chronic obstructive pulmonary disease, unspecified; I10 Essential (primary) hypertension; K21.9 Gastro-esophageal reflux disease without esophagitis; Z79.899 Other long term (current) drug therapy
CPT/HCPCS: 36415; 71046; 71275; 74177; 76700; 80053; 81001; 81003; 82607; 82728; 83540; 83615; 83690; 83735; 84443; 84466; 84484; 85025; 85044; 93005; 93306; 96365; 96372; 96374; 96375; 96376; 99284; 99285

== ENCOUNTER 2018-06-10 12:25 | Observation (INO) | payer MEDICARE, OTHER ==
[2018-06-10 13:05] LABS: HGB - HEMOGLOBIN 8.9 g/dL (12.0-16.0); MEAN CORPUSCULAR HEMOGLOBIN 26.7 pg (27.0-31.0); MEAN CORPUSCULAR HGB CONC 32.5 g/dL (32.0-36.0); MEAN CORPUSCULAR VOLUME 82.2 fL (81.0-99.0); MEAN PLATELET VOLUME 9.2 fL (7.9-10.8); RED BLOOD COUNT 3.32 10^6/uL (4.20-5.40); RED CELL DISTRIBUTION WIDTH 16.6 % (12.0-15.0); WHITE BLOOD COUNT 6.1 x10^3/uL (4.8-10.8)
[2018-06-10 13:13] LABS: INR 2.2 (0.8-1.2); PT - PROTHROMBIN TIME 24.1 secs (9.9-12.6)
[2018-06-10 13:19] LABS: ALBUMIN 3.9 g/dL (3.2-5.5); ALBUMIN/GLOBULIN RATIO 1.3 (1.0-2.2); BILIRUBIN,TOTAL 1.3 mg/dL (0.2-1.0); CALCIUM 9.1 mg/dL (8.5-10.3); CREATININE 1.1 mg/dL (0.4-1.0); TOTAL PROTEIN 6.9 g/dL (6.7-8.2)
[2018-06-10] MEDS ORDERED: MORPHINE 2 MG/ML CARPUJECT IVP STA ×2 (14:03→17:14)
--- NOTE | 2018-06-10 14:06 | ED Physician Documentation ---
PD HPI BACK PAIN - Stated complaint Stated Complaint: NECK/BACK PX - Chief complaint Chief Complaint: Back Pain - History obtained from History obtained from: Patient - History of Present Illness Timing - onset: Last night (This is an 83-year-old woman with recent diagnosis of A. fib with RVR on metoprolol and a novel oral anticoagulant. She was hospitalized the end of last month and was also found to have potential small right lower lobe PEs and a 3.1 cm abdominal aortic aneurysm. Last night she developed right sided upper and mid back pain that moved down towards the flanks and now hurts in the left lower quadrant. She was constipated yesterday and had a normal bowel movement today followed by black diarrhea. She is persistently short of breath since the diagnoses of A. fib and PE. She denies pedal edema. She tried ibuprofen for the pain and had about 6 doses. She knows she is not supposed to take this with the blood thinner but did not have anything else at home.) Review of Systems Ten Systems: 10 systems reviewed and negative Constitutional: reports: Fatigue. denies: Fever, Chills Cardiac: denies: Chest pain / pressure, Palpitations, Pedal edema, Calf pain Respiratory: reports: Dyspnea, Cough. denies: Hemoptysis, Wheezing PD PAST MEDICAL HISTORY - Past Medical History Cardiovascular: Pulmonary embolism, Atrial fibrillation Respiratory: COPD, Emphysema Endocrine/Autoimmune: None GI: GERD : Incontinence HEENT: None Psych: None Musculoskeletal: Osteoarthritis Derm: None - Past Surgical History Past Surgical History: Yes General: Cholecystectomy, Colonoscopy /WEB APPLICATIONS ARCHITECT: Hysterectomy HEENT: Cataracts, Tonsil/Adenoidectomy - Present Medications Home Medications: Ambulatory Orders Medication Instructions Recorded Confirmed Famotidine 10 mg PO BID 03/23/13 06/10/18 Gabapentin [Neurontin] 300 mg PO QPM 02/23/17 06/10/18 Mirabegron [Myrbetriq] 50 mg PO DAILY 02/24/17 06/10/18 Sucralfate [Carafate] 1 gm PO ACHS #40 tablet 05/17/18 06/10/18 Aspirin Chewable [[place] 81 mg PO DAILY 05/26/18 06/10/18 Aspirin] Cholecalciferol (Vitamin D3) 5,000 unit PO DAILY 05/26/18 06/10/18 [Vitamin D3] Losartan [Cozaar] 100 mg PO DAILY 05/26/18 06/10/18 Albuterol Sulfate [Proventil Hfa 1 - 2 puffs INH Q4H PRN #1 inhaler 05/27/18 06/10/18 Inhaler] Metoprolol Succinate [Toprol Xl] 50 mg PO DAILY #30 tablet 05/27/18 06/10/18 Rivaroxaban [Xarelto] 20 mg PO DAILY #30 tablet 05/27/18 06/10/18 - Allergies Allergies/Adverse Reactions: Allergies Allergy/AdvReac Type Severity Reaction Status Date / Time Penicillins Allergy Intermediate Hives Verified 05/25/18 17:13 benzonatate Allergy Unknown Verified 06/08/18 10:39 [From Tessalon Perles] omeprazole AdvReac Intermediate Rash Verified 06/10/18 12:34 - Social History Does the pt smoke?: Yes Smoking Status: Current every day smoker Does the pt drink ETOH?: No Does the pt have substance abuse?: No - Immunizations Immunizations are current?: Yes - POLST Patient has POLST: No POLST Status: Full Code PD ED PE NORMAL - Vitals Vital signs reviewed: Yes - General General: Alert and oriented X 3, No acute distress - HEENT HEENT: PERRL, EOMI - Neck Neck: Supple, no meningeal sign, No bony TTP - Cardiac Cardiac: Other (Irregularly irregular without murmur) - Respiratory Respiratory: No respiratory distress, Clear bilaterally - Abdomen Abdomen: Normal bowel sounds, Soft, Non tender - Rectal Rectal: Other (Dark guaiac pos stool, with Birgit RN, QC pass) - Back Back: No CVA TTP, No spinal TTP - Derm Derm: Normal color, Warm and dry - Extremities Extremities: No edema, No calf tenderness / cord - Neuro Neuro: Alert and oriented X 3, Normal speech - Psych Psych: Normal mood, Normal affect Results - Vitals Vitals: Vital Signs - 24 hr 06/10/18 06/10/18 06/10/18 12:30 13:41 15:59 Temperature 36 C L 36.1 C L Heart Rate 86 125 H 106 H Respiratory 18 20 15 Rate Blood Pressure 126/94 H 144/103 H 144/99 H O2 Saturation 94 92 97 Oxygen O2 Source Room air - EKG (time done) 1412 Rate: Rate (enter#) (96) Rhythm: Atrial fibrillation [place]: Normal Ischemia: Normal ST segments, Q waves (V1-V3), Non specific changes Computer interpretation: Agree with computer - Labs Labs: Laboratory Tests 06/10/18 06/10/18 06/10/18 12:54 12:56 12:56 WBC 6.1 RBC 3.32 L Hgb 8.9 L Hct 27.3 L MCV 82.2 MCH 26.7 L MCHC 32.5 RDW 16.6 H Plt Count 235 MPV 9.2 PT INR APTT Sodium Potassium Chloride Carbon Dioxide Anion Gap BUN Creatinine Estimated GFR (MDRD) Glucose Calcium Total Bilirubin AST ALT Alkaline Phosphatase Troponin I < 0.04 Total Protein Albumin Globulin Albumin/Globulin Ratio Lipase Blood Type A NEGATIVE Antibody Screen NEGATIVE Crossmatch IS Only 06/10/18 06/10/18 06/10/18 12:56 12:56 12:56 WBC RBC Hgb Hct MCV MCH MCHC RDW Plt Count MPV PT 24.1 H INR 2.2 H APTT 60.1 H Sodium 135 Potassium 3.7 Chloride 103 Carbon Dioxide 25 Anion Gap 7.0 BUN 21 H Creatinine 1.1 H Estimated GFR (MDRD) 48 L Glucose 96 Calcium 9.1 Total Bilirubin 1.3 H AST 25 ALT 18 Alkaline Phosphatase 78 Troponin I Total Protein 6.9 Albumin 3.9 Globulin 3.0 Albumin/Globulin Ratio 1.3 Lipase 37 Blood Type Antibody Screen Crossmatch IS Only 06/10/18 12:56 WBC RBC Hgb Hct MCV MCH MCHC RDW Plt Count MPV PT INR APTT Sodium Potassium Chloride Carbon Dioxide Anion Gap BUN Creatinine Estimated GFR (MDRD) Glucose Calcium Total Bilirubin AST ALT Alkaline Phosphatase Troponin I Total Protein Albumin Globulin Albumin/Globulin Ratio Lipase Blood Type Cancelled Antibody Screen Cancelled Crossmatch IS Only See Detail PD MEDICAL DECISION MAKING - ED course ED course: 83-year-old woman with migratory chest abdominal and back pain. Concerning for a vascular issue. She is in A. fib with borderline RVR. She is fully anticoagulated. She also has dark stool. Nurse was unable to get an IV. I was unable to get an IV that would be useful for angio, but I personally placed a 22-gauge deep left deep brachial IV using real-time ultrasound guidance. Her rectal examination was guaiac positive. There is no evidence of acute disease on the CTs of the chest or abdomen. No large PE or dissection etc. Spoke with Dr. Valadez for admission given worsening anemia, active upper GI bleeding at 4:23 PM. Also spoke with surgeon Dr Álvarez for poss c/s at 1705 Departure - Departure Disposition: 66 [facility] DC/Xfer Clinical Impression: Upper GI bleed Atrial fibrillation Qualifiers: Atrial fibrillation type: persistent Qualified Code(s): I48.1 - Persistent atrial fibrillation Back pain Qualifiers: Back pain location: thoracic back pain Chronicity: acute Back pain laterality: midline Qualified Code(s): M54.6 - Pain in thoracic spine Condition: Serious
[2018-06-10] MEDS ORDERED: IOVERSOL 320 100 ML VIAL IVP ONE ×2 (14:32→18:02)
[2018-06-10] MEDS ORDERED: PANTOPRAZOLE 40 MG VIAL IVP STA (16:05)
--- NOTE | 2018-06-10 16:12 | CT Report ---
Reason: IV only, chest/abd pain, Procedure Date: 06/10/2018 Accession Number: [id number] / [id number] Procedure: CT - Chest W/ CPT Code: FULL RESULT: EXAM: CT CHEST EXAM DATE: 06/10/2018 03:27 PM. CLINICAL HISTORY: IV only, chest/abd pain. COMPARISONS: 05/27/2018. TECHNIQUE: Routine helical CT imaging was performed through the chest. IV contrast: None. Reconstructions: Coronal and sagittal. In accordance with CT protocol optimization, one or more of the following dose reduction techniques were utilized for this exam: automated exposure control, adjustment of mA and/or KV based on patient size, or use of iterative reconstructive technique. FINDINGS: Lungs/Pleura: Right lower lobe lateral segment area of infiltrate similar or smaller than previous. Bi-basilar atelectasis. Small bilateral pleural effusions. Right 1.9 cm left 1 cm. Mediastinum: Top normal mediastinal lymph nodes precarinal 1 cm lymph nodes. Mild cardiomegaly. Trace pericardial effusion. Coronary artery calcifications. Small hiatal hernia Bones: Unremarkable. Visualized Abdomen: Unremarkable. Other: None. IMPRESSION: 1. Right lower lobe infiltrate similar decrease. 2. Bibasilar atelectasis. Small bilateral effusions. RADIA
--- NOTE | 2018-06-10 16:12 | CT Report ---
Reason: IV only, chest/abd pain, Procedure Date: 06/10/2018 Accession Number: [id number] / [id number] Procedure: CT - Abdomen/Pelvis W/ CPT Code: FULL RESULT: EXAM: CT ABDOMEN AND PELVIS EXAM DATE: 06/10/2018 03:27 PM. CLINICAL HISTORY: IV only, chest/abd pain. COMPARISONS: None. TECHNIQUE: Routine helical CT imaging was performed through the abdomen and pelvis. IV contrast: opti 320 100mL. Enteric contrast: No. Reconstructions: Coronal and sagittal. In accordance with CT protocol optimization, one or more of the following dose reduction techniques were utilized for this exam: automated exposure control, adjustment of mA and/or KV based on patient size, or use of iterative reconstructive technique. FINDINGS: Liver: Normal. No masses. Gallbladder/Bile Ducts: Post cholecystectomy. Common bile duct 1 cm stable. Spleen: Normal. Pancreas: Normal. Adrenal Glands: Normal. Kidneys: Bilateral areas of scarring. Peritoneal Cavity/Bowel: Diverticulosis. No free fluid, free air or adenopathy. No masses or acute inflammatory process. The appendix is well visualized and normal in the left pelvis. Pelvic Organs: Bladder is unremarkable. Small amount of air in the vaginal cuff. Vasculature: Atherosclerotic changes. Bones: Right pars defects at L5 without spondylolisthesis. Other: None. IMPRESSION: 1. Diverticulosis. 2. Normal appendix. 3. Bilateral renal scarring. RADIA
[2018-06-10] MEDS ORDERED: SODIUM CHLORIDE FLUSH 0.9% 10 ML SYRINGE IVP PRN (17:11)
[2018-06-10] MEDS ORDERED: oxyCODONE 5 MG TABLET PO PRN (17:11)
[2018-06-10] MEDS ORDERED: ZOLPIDEM 5 MG TABLET PO PRN (17:11)
[2018-06-10] MEDS ORDERED: ONDANSETRON 4 MG/2 ML VIAL IVP PRN (17:11)
[2018-06-10] MEDS ORDERED: MORPHINE 2 MG/ML CARPUJECT IVP PRN (17:11)
[2018-06-10] MEDS ORDERED: ACETAMINOPHEN 325 MG TABLET PO PRN (17:11)
--- NOTE | 2018-06-10 17:29 | HISTORY & PHYSICAL EXAMINATION ---
Chief Complaint - Chief Complaint Chief Complaint: GI bleed History of Present Illness - History of Present Illness HPI Comment/Other: This is a 82-year-old female with a past medical history significant for afib with Xarelto and PE, COPD, Emphysema, GERD, urinary incontinence, Osteoarthritis, who present emergence department for evaluation of GI bleed with black stool. pt report she had upper back pain on her right side that is worst at night. Sh report the pain has been going on for a couple days. She report she was constipated but this morning she had diarrhea and states that it was black and has been that way a couple days. Her rectal examination was guaiac positive as well. There is no evidence of acute disease on the CTs of the chest or abdomen per ER provider review, and no large PE or dissection was found as well. She report she took lots of Ibuprofen for her chronic pain. HGB is 8.9 now, 9.7 on two weeks ago. pt denies headache, chest pain, headache, dizziness, pre-syncope or syncope, fever, chill. Dr. Álvarez was called, and plan to have endoscopy on tomorrow. 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 She moved here from [place] in 2006 to be closer to her son. She did have a daughter who in 2011. - Substance History Use: Uses substance without health or social issues: NONE - POLST Patient has POLST: No POLST Status: Full Code Meds/Allgy - Home Medications Home Medications: Ambulatory Orders Medication Instructions Recorded Confirmed Famotidine 10 mg PO BID 03/23/13 06/10/18 Gabapentin [Neurontin] 300 mg PO QPM 02/23/17 06/10/18 Mirabegron [Myrbetriq] 50 mg PO DAILY 02/24/17 06/10/18 Sucralfate [Carafate] 1 gm PO ACHS #40 tablet 05/17/18 06/10/18 Aspirin Chewable [[place] 81 mg PO DAILY 05/26/18 06/10/18 Aspirin] Cholecalciferol (Vitamin D3) 5,000 unit PO DAILY 05/26/18 06/10/18 [Vitamin D3] Losartan [Cozaar] 100 mg PO DAILY 05/26/18 06/10/18 Albuterol Sulfate [Proventil Hfa 1 - 2 puffs INH Q4H PRN #1 inhaler 05/27/18 06/10/18 Inhaler] Metoprolol Succinate [Toprol Xl] 50 mg PO DAILY #30 tablet 05/27/18 06/10/18 Rivaroxaban [Xarelto] 20 mg PO DAILY #30 tablet 05/27/18 06/10/18 - Allergies Allergies/Adverse Reactions: Allergies Allergy/AdvReac Type Severity Reaction Status Date / Time Penicillins Allergy Intermediate Hives Verified 05/25/18 17:13 benzonatate Allergy Unknown Verified 06/08/18 10:39 [From Bi Grace] omeprazole AdvReac Intermediate Rash Verified 06/10/18 12:34 Review of Systems - Constitutional Constitutional: denies: Fatigue, Fever, Chills, Malaise, Weakness, Poor appetite, Diaphoresis, Night sweats - Eyes Eyes: denies: Pain, Irritation, Amaurosis, Blurred vision, Spots in vision, Field loss, Vision loss, Dipolpia - Ears, Nose & Throat Ears, Nose & Throat: denies: Ear pain, Hearing loss, Hearing aids, Tinnitus, Vertigo, Nasal pain, Nasal discharge, Nosebleeds, Nasal obstruction, Nasal congestion, Postnasal drainage, Dentures, Sore throat, Hoarseness - Cardiovascular Cariovascular: denies: Irregular heart rate, Palpitations, Chest pain, Edema, Lightheadedness, Syncope, Exertional dyspnea, Decr. exercise tolerance - Respiratory Respiratory: denies: Cough, Sputum production, Wheezing, Snoring, Hemoptysis, Orthopnea, SOB at rest, SOB with exertion - Gastrointestinal Gastrointestinal: reports: Black stools. denies: Abdominal pain, Abdominal distention, Constipation, Diarrhea, Change in bowel habits, Rectal bleeding, Blo joby stools, Nausea, Vomiting, Bile emesis, Ziggy blood emesis, Coffee grounds emesis, Reflux/heartburn - Genitourinary Genitourinary: denies: Dysuria, Frequency, Urgency, Hematuria, Incontinence, Flank pain, Nocturia, Urethral discharge - Musculoskeletal Musculoskeletal: reports: Muscle pain, Back pain. denies: Muscle aches, Stiffness, Limited range of motion, Muscle weakness, Gout, Joint pain - Integumentary Integumentary: denies: Rash, Pruritis, Lesions, Dryness, Lumps, Acne, Pigment changes, Nail changes - Neurological Neurological: denies: General weakness, Focal weakness, Headache, Dizziness, Numbness, Memory problems, Pre-existing deficit, Abnormal gait, Seizures, Incoordination, Slurred speech - Psychiatric Psychiatric: denies: Depression, Anxiety, Suicidal, Delusions, Hallucinations, H omicidal - Endocrine Endocrine: denies: Polyuria, Polydypsia, Polyphagia, Intolerance to cold - Hematologic/Lymphatic Hematologic/Lymphatic: denies: Anemia, Bruising, Petechiae, Blood clots, Lymphadenopathy, Bleeding tendencies Prior Level of Functionality: independently Exam - Vital Signs Reviewed Vital Signs: Yes Vital Signs: Vital Signs x48h Temp Pulse Resp BP Pulse Ox 06/10/18 15:59 36.1 C L 106 H 15 144/99 H 97 06/10/18 13:41 125 H 20 144/103 H 92 06/10/18 12:30 36 C L 86 18 126/94 H 94 - Physical Exam General Appearance: positive: No acute distress, Alert. negative: Lethargic Eyes Bilateral: positive: Normal inspection, PERRL, No lid inflammation, Conjunctivae nml ENT: positive: ENT inspection nml, Pharynx nml, No signs of dehydration. n egative: Purulent nasal drainage, Pharyngeal erythema, Oral lesions Neck: positive: Nml inspection, Thyroid nml, No JVD, Trachea midline. negative: Thyromegaly, Lymphadenopathy (R), Lymphadenopathy (L), Stiff neck, Swelling/bruising, Tracheal deviation Respiratory: positive: Chest non-tender, No respiratory distress, Breath sounds nml. negative: Wheezes, Rales, Rhonchi Cardiovascular: positive: Regular rate & rhythm, No murmur, No gallop. negative: Irregularly irregular, Extrasystoles, Tachycardia, Bradycardia, JVD p resent, Systolic murmur, Diastolic murmur Peripheral Pulses: positive: 2+ Abdomen: positive: Non-tender, No organomegaly, Nml bowel sounds, No distention. negative: Tenderness, Guarding, Rebound Back: positive: Nml inspection. negative: CVA tenderness (R), CVA tenderness (L) Skin: positive: Color nml, No rash, Warm, Dry. negative: Cyanosis, Diaphoresis, Pallor Extremities: positive: Non-tender, Full ROM, Nml appearance. negative: Calf tenderness, Joint swelling, Daisy's sign/cords Neurologic/Psychiatric: positive: Oriented x3, Motor nml, Sensation nml, Mood/affect nml. negative: Weakness, Sensory loss, Facial droop, Slurred/abnml speech, Depressed mood/affect Sepsis Event Note (H) - Evaluation Current Stage of Sepsis: Ruled out Conclusion/Plan - Problem List (1) Black stool Conclusion/Plan: pt report black stool. In ER, Her rectal examination was guaiac positive. pt report she took lots of ibuprofen. consult with GI surgeon , plan to have endoscopy on tomorrow H&H NPO after midnight pt is allergy to PPI, start on Pepcid bid IV resume carafate (2) Atrial fibrillation Conclusion/Plan: pt had afib, today slight tachycardia tele and vital monitor will increase her beta-block dosage if continue tachycardia Qualifiers: Atrial fibrillation type: persistent Qualified Code(s): I48.1 - Persistent atrial fibrillation (3) Hx of pulmonary embolus Conclusion/Plan: pt had new contrast CT of chest and abdomen done at ER, Dr. Hairston reviewed, it is no PE more. and pt had GI bleed. So her Xarelto is hold now. I discuss with pt if continue to use blood thinner for her afib, her [id number] score is 4%, recommend to have blood thinner. but now she has GI bleed. Pt state she will discuss with her PCP if continue, now hold for GI bleed for healing. pt denies chest pain, SOB. hold Xarelto. vital and tele monitor pt (4) HTN (hypertension) Conclusion/Plan: stable, resume home meds (5) History of COPD Conclusion/Plan: stable, resume home meds (6) GERD (gastroesophageal reflux disease) Conclusion/Plan: start with Pepcid IV bid, pt is allergy to PPI resume home meds Carafate - Lab Results Fish Bones: 06/11/18 08:07 06/11/18 08:07 Core Measures - Anticipated LOS I expect patient to be DC'd or transferred within 96 hours.: Yes - DVT/VTE - Prophylaxis VTE/DVT Device ordered at admit?: Yes VTE/DVT Prophylaxis med ordered at admit?: Yes
[2018-06-10] MEDS ORDERED: PANTOPRAZOLE 40 MG VIAL IVP SCH (18:00)
[2018-06-10] MEDS: SUCRALFATE 1 GM/10 ML UDC PO SCH ×2 (18:37→20:45)
[2018-06-10] MEDS: FAMOTIDINE 20 MG/50 ML 50 ML IV SCH (20:45)
[2018-06-10] MEDS ORDERED: GABAPENTIN 100 MG CAPSULE PO SCH (21:00)
[2018-06-10 22:05] LABS: HGB - HEMOGLOBIN 8.5 g/dL (12.0-16.0)
[2018-06-10] MEDS ORDERED: SODIUM CHLORIDE 0.9% 1,000 ML IV SCH (23:30)
[2018-06-11] MEDS: SODIUM CHLORIDE FLUSH 0.9% 10 ML SYRINGE IVP SCH ×2 (00:18→09:25)
[2018-06-11] MEDS: SUCRALFATE 1 GM/10 ML UDC PO SCH ×2 (06:47→12:40)
[2018-06-11 08:20] LABS: BASOPHILS # (AUTO) 0.1 10^3/uL (0.0-0.1); EOSINOPHILS # (AUTO) 0.2 10^3/uL (0.0-0.7); HGB - HEMOGLOBIN 8.6 g/dL (12.0-16.0); LYMPHOCYTES % (AUTO) 19.2 %; MEAN CORPUSCULAR HEMOGLOBIN 26.1 pg (27.0-31.0); MEAN CORPUSCULAR HGB CONC 31.6 g/dL (32.0-36.0); MEAN CORPUSCULAR VOLUME 82.6 fL (81.0-99.0); MEAN PLATELET VOLUME 9.4 fL (7.9-10.8); MONOCYTES # (AUTO) 0.5 10^3/uL (0.0-1.0); MONOCYTES % (AUTO) 9.2 %; NEUTROPHILS # (AUTO) 3.4 10^3/uL (1.5-6.6); NEUTROPHILS % (AUTO) 67.6 %; PLT - PLATELET COUNT 205 10^3/uL (130-450); RED BLOOD COUNT 3.31 10^6/uL (4.20-5.40); RED CELL DISTRIBUTION WIDTH 16.5 % (12.0-15.0); WHITE BLOOD COUNT 5.1 x10^3/uL (4.8-10.8)
[2018-06-11 08:25] LABS: ALBUMIN 3.5 g/dL (3.2-5.5); ALBUMIN/GLOBULIN RATIO 1.2 (1.0-2.2); BILIRUBIN,TOTAL 1.2 mg/dL (0.2-1.0); CALCIUM 8.8 mg/dL (8.5-10.3); CREATININE 1.1 mg/dL (0.4-1.0); MAGNESIUM 1.9 mg/dL (1.7-2.8); TOTAL PROTEIN 6.5 g/dL (6.7-8.2)
--- NOTE | 2018-06-11 08:54 | CONSULTATION NOTE ---
Referring Provider Consult Date: 06/11/18 Chief Complaint - Chief Complaint Chief Complaint: back pain History of Present Illness - History of Present Illness HPI Comment/Other: 82 yo woman presented to the ER last night with complaints of back/chest/abdominal pain. [facility] States she took a large dose of Advil for the back pain and had a subsequent black stool. No BMs since yesterday morning. She is on Xarelto for Afib. Still complaining of some back pain, but denies any dizziness, syncope, weakness, vomiting. She had a normal colonoscopy 2-3 years ago. 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 She moved here from [place] in 2006 to be closer to her son. She did have a daughter who in 2011. - Substance History Use: Uses substance without health or social issues: NONE - POLST Patient has POLST: No POLST Status: Full Code Meds/Allgy - Home Medications Home Medications: Ambulatory Orders Medication Instructions Recorded Confirmed Famotidine 10 mg PO BID 03/23/13 06/10/18 Gabapentin [Neurontin] 300 mg PO QPM 02/23/17 06/10/18 Mirabegron [Myrbetriq] 50 mg PO DAILY 02/24/17 06/10/18 Sucralfate [Carafate] 1 gm PO ACHS #40 tablet 05/17/18 06/10/18 Aspirin Chewable [[place] 81 mg PO DAILY 05/26/18 06/10/18 Aspirin] Cholecalciferol (Vitamin D3) 5,000 unit PO DAILY 05/26/18 06/10/18 [Vitamin D3] Losartan [Cozaar] 100 mg PO DAILY 05/26/18 06/10/18 Albuterol Sulfate [Proventil Hfa 1 - 2 puffs INH Q4H PRN #1 inhaler 05/27/18 06/10/18 Inhaler] Metoprolol Succinate [Toprol Xl] 50 mg PO DAILY #30 tablet 05/27/18 06/10/18 Rivaroxaban [Xarelto] 20 mg PO DAILY #30 tablet 05/27/18 06/10/18 - Allergies Allergies/Adverse Reactions: Allergies Allergy/AdvReac Type Severity Reaction Status Date / Time Penicillins Allergy Intermediate Hives Verified 05/25/18 17:13 benzonatate Allergy Unknown Verified 06/08/18 10:39 [From Bi Grace] omeprazole AdvReac Intermediate Rash Verified 06/10/18 12:34 Review of Systems - Gastrointestinal Gastrointestinal: reports: Black stools - Musculoskeletal Musculoskeletal: reports: Back pain Exam - Vital Signs Vital Signs: Vital Signs x48h Temp Pulse Resp BP Pulse Ox 06/11/18 05:37 36.4 C L 108 H 20 146/80 H 100 - Physical Exam General Appearance: positive: No acute distress Eyes Bilateral: positive: Normal inspection ENT: positive: ENT inspection nml Neck: positive: Nml inspection Respiratory: positive: Chest non-tender Abdomen: positive: Non-tender Back: positive: Nml inspection Skin: positive: Color nml Extremities: positive: Non-tender Neurologic/Psychiatric: positive: Oriented x3 Conclusion/Plan - Diagnosis Diagnosis: Transient GI bleed - Plan Plan: Pt had a transient GI bleed. Most likely gastric in response to NSAID use and being anticoagulated. She has had no melena for over 24 hours and her H/H has been stable during her admission. I discussed an EGD with the pt and she does not want one at this time. I agree that there is not a strong indication. She understands that if her symptoms return, an EGD would be indicated. She understands the need to avoid NSAID use. - Lab Results Fish Bones: 06/11/18 08:07 06/11/18 08:07
[2018-06-11] MEDS ORDERED: Mirabegron [Myrbetriq] 50 MG PO SCH (09:00)
[2018-06-11] MEDS ORDERED: CHOLECALCIFEROL 5,000 UNIT CAPSULE PO SCH (09:00)
[2018-06-11] MEDS ORDERED: METOPROLOL SUCCINATE 25 MG TABLET PO SCH ×2 (09:00)
[2018-06-11] MEDS ORDERED: POLYETHYLENE GLYCOL 3350 17 GM PACKET PO SCH (09:00)
[2018-06-11] MEDS ORDERED: FERROUS SULFATE 325 MG TABLET PO SCH (09:00)
[2018-06-11] MEDS ORDERED: LOSARTAN 50 MG TABLET PO SCH (09:00)
[2018-06-11 09:19] LABS: MEAN RETIC VALUE 115.7; RED BLOOD COUNT 3.29 10^6/uL (4.20-5.40)
[2018-06-11] MEDS: FAMOTIDINE 20 MG/50 ML 50 ML IV SCH (09:25)
[2018-06-11 09:51] LABS: % IRON SATURATION 5 % (20-50); IRON 25 ug/dL (28-170); TOTAL IRON BINDING CAPACITY 468 ug/dL (250-450); TRANSFERRIN 334 mg/dL (192-382)
[2018-06-11 10:04] LABS: FERRITIN 9.3 ng/mL (11.0-306.8)
--- NOTE | 2018-06-11 12:13 | Discharge Plan ---
Discharge Plan Disposition: Home, Self Care Condition: Poor Prescriptions: oxyCODONE [Roxicodone] 5 mg PO Q4HR PRN #20 tablet PRN Reason: Pain 5 to 7 Famotidine [Pepcid] 20 mg PO BID #20 tablet Metoprolol Succinate [Toprol Xl] 75 mg PO DAILY #30 tablet Diet: Regular Activity Restrictions: Activity as Tolerated Shower Restrictions: No (fall precaution) Instruction Topics: Famotidine tablets or gelcaps, Metoprolol extended-release tablets, Oxycodone tablets or capsules, AFL/Afib Additional Instructions or Follow Up instructions: You may followup your PCP in one week. Your blood thinners are hold now because of your GI bleed, as we discussed. As you prefer, Please further discuss with your PCP if continue your blood thinner for your ongoing Afib. Your HGB is stable now. Per the surgeon discussed with you, you prefer no endoscopy now. Should your symptoms return or worsen, you may present ER, call 911 or call your PCP for help. No Smoking: If you smoke, Please STOP! Call for help. Follow-up with: Mich Patten MD [Primary Care Provider] -
--- NOTE | 2018-06-11 12:57 | DISCHARGE SUMMARY ---
"Discharge Summary Discharge Date: 06/11/18 Discharging Provider: COELHO Primary Care Provider: Mich Alvarez Condition at Discharge: Poor Discharge Disposition: Home, Self Care Discharge Facility Name: home - DIAGNOSES Admission Diagnoses: (1) Black stool (2) Atrial fibrillation (3) Hx of pulmonary embolus (4) HTN (hypertension) (5) History of COPD (6) GERD (gastroesophageal reflux disease) Discharge Diagnoses with Status of Each Condition: (1) Black stool pt's HGB is stable. Per Dr. Álvarez's conversation with pt, pt decline to have endoscopy for her. Pt told me the same, she does not want to have endoscopy at this time. recommend for pt, no NAIDs, no ibuprofen. pt prefer to discuss with her PCP if further continue Xarelto and Aspirin after her GI track is healed. pt state she is allergy to PPI and iron pill. Pt is prescribed Pepcid. (2) Atrial fibrillation pt has increase pause HR. Pt's home metoprolol dosage increase to 75 mg daily. pt tolerate. HR is controlled at 82. (3) Hx of pulmonary embolus new contrast CT of chest in ER, per Dr. Hairston's review, reveals resolved. (4) HTN (hypertension) stable, continue PCP management (5) History of COPD stable (6) GERD (gastroesophageal reflux disease) prescribe Pepcid for pt, continue home meds carafate. pt is allergy to PPI. (7) upper back pain on her right side resolved per pt reported. - HPI History of Present Illness: This is a 82-year-old female with a past medical history significant for afib with Xarelto and PE, COPD, Emphysema, GERD, urinary incontinence, Osteoarthritis, who present emergence department for evaluation of GI bleed with black stool. pt report she had upper back pain on her right side that is worst at night. Sh report the pain has been going on for a couple days. She report she was constipated but this morning she had diarrhea and states that it was black and has been that way a couple days. Her rectal examination was guaiac positive as well. There is no evidence of acute disease on the CTs of the chest or abdomen per ER provider review, and no large PE or dissection was found as well. She report she took lots of Ibuprofen for her chronic pain. HGB is 8.9 now, 9.7 on two weeks ago. pt denies headache, chest pain, headache, dizziness, pre-syncope or syncope, fever, chill. Dr. Álvarez was called, and plan to have endoscopy on tomorrow. - CONSULTS | PROCEDURES Consultations: Dr. Álvarez Procedures: pt decline endoscopy - HOSPITAL COURSE Hospital Course: pt was admitted for GI bleed. H&H monitor pt. pt's HGB is stable. pt did not have bowel movement in hospital yet. Dr. Álvarez, GI surgeon was consulted. pt decline to have endoscopy in this time. The benefit and risks without blood thinner at pt has ongoing of Afib was discussed with pt. The effects and side effects of all meds was discussed with pt. Pt prefer to discuss with her PCP if continue to have blood thinner after her GI bleed is healed. - ALLERGIES Allergies/Adverse Reactions: Allergies Allergy/AdvReac Type Severity Reaction Status Date / Time Penicillins Allergy Intermediate Hives Verified 05/25/18 17:13 benzonatate Allergy Unknown Verified 06/08/18 10:39 [From Tessalsissy Grace] omeprazole AdvReac Intermediate Rash Verified 06/10/18 12:34 - MEDICATIONS Home Medications: Ambulatory Orders Medication Instructions Recorded Confirmed Famotidine 10 mg PO BID 03/23/13 06/10/18 Gabapentin [Neurontin] 300 mg PO QPM 02/23/17 06/10/18 Mirabegron [Myrbetriq] 50 mg PO DAILY 02/24/17 06/10/18 Sucralfate [Carafate] 1 gm PO ACHS #40 tablet 05/17/18 06/10/18 Cholecalciferol (Vitamin D3) 5,000 unit PO DAILY 05/26/18 06/10/18 [Vitamin D3] Losartan [Cozaar] 100 mg PO DAILY 05/26/18 06/10/18 Albuterol Sulfate [Proventil Hfa 1 - 2 puffs INH Q4H PRN #1 inhaler 05/27/18 06/10/18 Inhaler] Famotidine [Pepcid] 20 mg PO BID #20 tablet 06/11/18 Metoprolol Succinate [Toprol Xl] 75 mg PO DAILY #30 tablet 06/11/18 oxyCODONE [Roxicodone] 5 mg PO Q4HR PRN #20 tablet 06/11/18 - PHYSICAL EXAM AT DISCHARGE General Appearance: positive: No acute distress, Alert. negative: Lethargic Eyes Bilateral: positive: Normal inspection, PERRL, No lid inflammation, Conjunctivae nml ENT: positive: ENT inspection nml, Pharynx nml, No signs of dehydration. negative: Purulent nasal drainage, Pharyngeal erythema, Oral lesions Neck: positive: Nml inspection, Thyroid nml, No JVD, Trachea midline. negative: Thyromegaly, Lymphadenopathy (R), Lymphadenopathy (L), Stiff neck, Swelling/bruising, Tracheal deviation Respiratory: positive: Chest non-tender, No respiratory distress, Breath sounds nml. negative: Wheezes, Rales, Rhonchi Cardiovascular: positive: Regular rate & rhythm, No murmur, No gallop. negative: Irregularly irregular, Extrasystoles, Tachycardia, Bradycardia, JVD present, Systolic murmur, Diastolic murmur Peripheral Pulses: positive: 2+ Abdomen: positive: Non-tender, No organomegaly, Nml bowel sounds, No distention. negative: Tenderness, Guarding, Rebound Back: positive: Nml inspection. negative: CVA tenderness (R), CVA tenderness (L) Skin: positive: Color nml, No rash, Warm, Dry. negative: Cyanosis, Diaphoresis, Pallor Extremities: positive: Non-tender, Full ROM, Nml appearance. negative: Calf tenderness, Joint swelling, Daisy's sign/cords Neurologic/Psychiatric: positive: Oriented x3, Motor nml, Sensation nml, Mood/affect nml. negative: Weakness, Sensory loss, Facial droop, Slurred/abnml speech, Depressed mood/affect - LABS Result Diagrams: 06/11/18 08:07 06/11/18 08:07 - SEPSIS Current Stage of Sepsis: Ruled out - FOLLOW UP Follow Up: You may followup your PCP in one week. Your blood thinners are hold now because of your GI bleed, as we discussed. As you prefer, Please further discuss with your PCP if continue your blood thinner for your ongoing Afib. Your HGB is stable now. Per the surgeon discussed with you, you prefer no endoscopy now. Should your symptoms return or worsen, you may present ER, call 911 or call your PCP for help. - TIME SPENT Time Spent in Discharge (Minutes): 60"
[2018-06-11 13:28] VITALS: BP 116/79
[2018-06-11] MEDS ORDERED: GABAPENTIN 300 MG CAPSULE PO SCH (21:00)
== END 2018-06-11 14:00 | disposition home or self-care (01) ==
LOC: ED 12:25 → OBS 17:11
PROVIDERS: ADMIT Nurse Practitioner Gerontology; ATTEND Nurse Practitioner Gerontology
DX: K92.1 Melena (principal); I48.1 Persistent atrial fibrillation; Z86.711 Personal history of pulmonary embolism; K21.9 Gastro-esophageal reflux disease without esophagitis; M54.6 Pain in thoracic spine; J43.9 Emphysema, unspecified; R32 Unspecified urinary incontinence; M19.90 Unspecified osteoarthritis, unspecified site; I71.4 Abdominal aortic aneurysm, without rupture; Z87.891 Personal history of nicotine dependence; Z79.899 Other long term (current) drug therapy; Z79.01 Long term (current) use of anticoagulants; Z79.82 Long term (current) use of aspirin
CPT/HCPCS: 36415; 71260; 74177; 80053; 82607; 82728; 83540; 83615; 83690; 83735; 84466; 84484; 85014; 85018; 85025; 85027; 85044; 85610; 85730; 86850; 86900; 86901; 86920; 93005; 96365; 96366; 96375; 99284; A9270; G0378; Q9967; 96374

== ENCOUNTER 2018-11-01 08:00 | Outpatient (CLI) | payer MEDICARE, OTHER ==
[2018-11-01 19:00] LABS: ABSOLUTE RETICS # AUTO 0.051 10^6/uL (0.020-0.110); MEAN RETIC VALUE 108.8; RED BLOOD COUNT 4.22 10^6/uL (4.20-5.40)
[2018-11-01 19:38] LABS: % IRON SATURATION 8 % (20-50); BUN - BLOOD UREA NITROGEN 14 mg/dL (6-20); CALCIUM 9.2 mg/dL (8.5-10.3); CARBON DIOXIDE - CO2 26 mmol/L (21-32); CHLORIDE 104 mmol/L (101-111); CREATININE 0.8 mg/dL (0.4-1.0); DIGOXIN 1.1 ng/mL; GFR - MDRD 69 (>89); GLUCOSE 108 mg/dL (70-100); IRON 34 ug/dL (28-170); SODIUM 138 mmol/L (135-145); TOTAL IRON BINDING CAPACITY 449 ug/dL (250-450); TRANSFERRIN 321 mg/dL (192-382)
[2018-11-01 19:52] LABS: FOLATE 5.64 ng/mL (5.90 - >24.8)
== END 2018-11-01 08:01 | disposition home or self-care (01) ==
LOC: LAB.WCP 08:00
PROVIDERS: ATTEND Internal Medicine Cardiovascular Disease
DX: I48.1 Persistent atrial fibrillation (principal); D50.0 Iron deficiency anemia secondary to blood loss (chronic)
CPT/HCPCS: 36415; 80048; 80162; 82607; 82746; 83540; 84466; 85044

== ENCOUNTER 2019-01-05 13:54 | Outpatient (CLI) | payer MEDICARE, OTHER ==
[2019-01-05 18:50] LABS: BASOPHILS # (AUTO) 0.1 10^3/uL (0.0-0.1); BASOPHILS % (AUTO) 0.8 %; EOSINOPHILS # (AUTO) 0.1 10^3/uL (0.0-0.7); EOSINOPHILS % (AUTO) 1.7 %; HGB - HEMOGLOBIN 11.8 g/dL (12.0-16.0); LYMPHOCYTES # (AUTO) 2.1 10^3/uL (1.5-3.5); MEAN CORPUSCULAR HEMOGLOBIN 27.6 pg (27.0-31.0); MEAN CORPUSCULAR HGB CONC 30.1 g/dL (32.0-36.0); MEAN CORPUSCULAR VOLUME 91.8 fL (81.0-99.0); MEAN PLATELET VOLUME 12.3 fL (7.9-10.8); MONOCYTES # (AUTO) 0.7 10^3/uL (0.0-1.0); MONOCYTES % (AUTO) 10.8 %; NEUTROPHILS # (AUTO) 3.4 10^3/uL (1.5-6.6); NEUTROPHILS % (AUTO) 53.4 %; PLT - PLATELET COUNT 159 10^3/uL (130-450); RED BLOOD COUNT 4.27 10^6/uL (4.20-5.40); RED CELL DISTRIBUTION WIDTH 18.4 % (12.0-15.0); WHITE BLOOD COUNT 6.3 x10^3/uL (4.8-10.8)
== END 2019-01-05 23:59 | disposition home or self-care (01) ==
LOC: LAB.N 13:54
PROVIDERS: ATTEND Family Medicine
DX: D64.9 Anemia, unspecified (principal)
CPT/HCPCS: 36415; 85025

== ENCOUNTER 2019-01-26 11:30 | Outpatient (CLI) | payer MEDICARE, OTHER ==
[2019-01-26 19:17] LABS: BUN - BLOOD UREA NITROGEN 18 mg/dL (6-20); CALCIUM 9.8 mg/dL (8.5-10.3); CARBON DIOXIDE - CO2 25 mmol/L (21-32); CHLORIDE 105 mmol/L (101-111); CREATININE 0.8 mg/dL (0.4-1.0); DIGOXIN 0.8 ng/mL; GFR - MDRD 69 (>89); GLUCOSE 108 mg/dL (70-100); SODIUM 141 mmol/L (135-145)
== END 2019-01-26 23:59 | disposition home or self-care (01) ==
LOC: LAB.N 11:30
PROVIDERS: ATTEND Internal Medicine Cardiovascular Disease
DX: I48.1 Persistent atrial fibrillation (principal)
CPT/HCPCS: 36415; 80048; 80162

== ENCOUNTER 2019-06-26 12:44 | Outpatient (CLI) | payer MEDICARE, OTHER ==
[2019-06-26 18:58] LABS: BASOPHILS # (AUTO) 0.1 10^3/uL (0.0-0.1); BASOPHILS % (AUTO) 0.9 %; EOSINOPHILS # (AUTO) 0.1 10^3/uL (0.0-0.7); EOSINOPHILS % (AUTO) 1.5 %; HGB - HEMOGLOBIN 12.9 g/dL (12.0-16.0); LYMPHOCYTES # (AUTO) 2.1 10^3/uL (1.5-3.5); LYMPHOCYTES % (AUTO) 30.3 %; MEAN CORPUSCULAR HEMOGLOBIN 28.7 pg (27.0-31.0); MEAN CORPUSCULAR HGB CONC 29.6 g/dL (32.0-36.0); MEAN CORPUSCULAR VOLUME 96.9 fL (81.0-99.0); MEAN PLATELET VOLUME 12.9 fL (7.9-10.8); MONOCYTES # (AUTO) 0.6 10^3/uL (0.0-1.0); MONOCYTES % (AUTO) 8.1 %; NEUTROPHILS % (AUTO) 59.1 %; PLT - PLATELET COUNT 155 10^3/uL (130-450); RED CELL DISTRIBUTION WIDTH 14.4 % (12.0-15.0); WHITE BLOOD COUNT 6.8 x10^3/uL (4.8-10.8)
[2019-06-26 19:13] LABS: CALCIUM 9.5 mg/dL (8.5-10.3); CREATININE 0.8 mg/dL (0.4-1.0)
== END 2019-06-26 23:59 | disposition home or self-care (01) ==
LOC: LAB.WCP 12:44
PROVIDERS: ATTEND Internal Medicine Cardiovascular Disease
DX: I48.19 Other persistent atrial fibrillation (principal)
CPT/HCPCS: 36415; 80048; 85025

== ENCOUNTER 2019-11-22 15:20 | Outpatient (CLI) | payer MEDICARE, OTHER ==
[2019-11-22 18:33] LABS: HGB - HEMOGLOBIN 12.4 g/dL (12.0-16.0); MEAN CORPUSCULAR HGB CONC 30.8 g/dL (32.0-36.0); MEAN CORPUSCULAR VOLUME 97.3 fL (81.0-99.0); MEAN PLATELET VOLUME 12.5 fL (7.9-10.8); RED BLOOD COUNT 4.14 10^6/uL (4.20-5.40); RED CELL DISTRIBUTION WIDTH 14.2 % (12.0-15.0); WHITE BLOOD COUNT 6.9 x10^3/uL (4.8-10.8)
[2019-11-22 19:12] LABS: CALCIUM 9.3 mg/dL (8.5-10.3); CREATININE 0.9 mg/dL (0.4-1.0)
== END 2019-11-22 23:59 | disposition home or self-care (01) ==
LOC: LAB.WCP 15:20
PROVIDERS: ATTEND Family Medicine
DX: I50.9 Heart failure, unspecified (principal); J44.9 Chronic obstructive pulmonary disease, unspecified; R94.6 Abnormal results of thyroid function studies
CPT/HCPCS: 36415; 80048; 83880; 84443; 85027

== ENCOUNTER 2019-11-22 15:36 | Outpatient (CLI) | payer MEDICARE, OTHER ==
--- NOTE | 2019-11-22 16:23 | XRAY Report ---
Reason: CHF Procedure Date: 11/22/2019 Accession Number: [id number] / [id number] Procedure: WCP - Chest 2 View X-Ray CPT Code: 25362 Final Report FULL RESULT: PROCEDURE: Chest 2 View X-Ray INDICATIONS: CHF TECHNIQUE: 2 view(s) of the chest. COMPARISON: None. FINDINGS: Surgical changes and devices: None. Lungs and pleura: No pleural effusions or pneumothorax. Lungs are clear. Mediastinum: Mediastinal contours are normal. Heart size is enlarged. Bones and chest wall: No suspicious bony abnormalities. Soft tissues appear unremarkable. IMPRESSION: 1. Cardiomegaly. 2. No acute process. Reviewed by: Nadya Mora MD on 11/22/2019 4:21 PM PDT Approved by: Nadya Mora MD on 11/22/2019 4:21 PM PDT Station ID: [id number]
== END 2019-11-22 23:59 | disposition home or self-care (01) ==
LOC: DI.WCP 15:36
PROVIDERS: ATTEND Family Medicine
DX: I51.7 Cardiomegaly (principal); I50.9 Heart failure, unspecified; J44.9 Chronic obstructive pulmonary disease, unspecified; R94.6 Abnormal results of thyroid function studies
CPT/HCPCS: 36415; 71046; 80048; 83880; 84443; 85027

== ENCOUNTER 2019-12-07 11:34 | Outpatient (CLI) | payer MEDICARE, OTHER ==
[2019-12-07 18:07] LABS: HGB - HEMOGLOBIN 12.4 g/dL (12.0-16.0); MEAN CORPUSCULAR HGB CONC 29.2 g/dL (32.0-36.0); MEAN CORPUSCULAR VOLUME 99.5 fL (81.0-99.0); MEAN PLATELET VOLUME 12.9 fL (7.9-10.8); RED BLOOD COUNT 4.27 10^6/uL (4.20-5.40); RED CELL DISTRIBUTION WIDTH 14.5 % (12.0-15.0); WHITE BLOOD COUNT 6.5 x10^3/uL (4.8-10.8)
[2019-12-07 19:36] LABS: CALCIUM 9.7 mg/dL (8.5-10.3); CREATININE 1.1 mg/dL (0.4-1.0)
== END 2019-12-07 11:35 | disposition home or self-care (01) ==
LOC: LAB.WCP 11:34
PROVIDERS: ATTEND Family Medicine
DX: I50.9 Heart failure, unspecified (principal)
CPT/HCPCS: 36415; 80048; 83880; 85027

== ENCOUNTER 2020-01-04 08:00 | Outpatient (CLI) | payer MEDICARE, OTHER ==
[2020-01-04 18:27] LABS: HGB - HEMOGLOBIN 11.5 g/dL (12.0-16.0); MEAN CORPUSCULAR HEMOGLOBIN 30.1 pg (27.0-31.0); MEAN CORPUSCULAR VOLUME 100.3 fL (81.0-99.0); MEAN PLATELET VOLUME 12.8 fL (7.9-10.8); RED BLOOD COUNT 3.82 10^6/uL (4.20-5.40); RED CELL DISTRIBUTION WIDTH 14.8 % (12.0-15.0); WHITE BLOOD COUNT 5.4 x10^3/uL (4.8-10.8)
[2020-01-04 18:51] LABS: CALCIUM 9.5 mg/dL (8.5-10.3)
== END 2020-01-04 23:59 | disposition home or self-care (01) ==
LOC: LAB.WCP 08:00
PROVIDERS: ATTEND Family Medicine
DX: R06.09 Other forms of dyspnea (principal)
CPT/HCPCS: 36415; 80048; 83880; 85025; 85027

== ENCOUNTER 2020-02-25 08:31 | Outpatient (CLI) | payer MEDICARE, OTHER ==
[2020-02-25 12:32] LABS: ALBUMIN 3.9 g/dL (3.2-5.5); ALBUMIN/GLOBULIN RATIO 1.3 (1.0-2.2); ALKALINE PHOSPHATASE 59 IU/L (42-121); ALT ALANINE AMINOTRANSFERASE 10 IU/L (10-60); AST ASPARTATE AMINOTRANSFERASE 18 IU/L (10-42); BUN - BLOOD UREA NITROGEN 20 mg/dL (6-20); CALCIUM 9.5 mg/dL (8.5-10.3); CARBON DIOXIDE - CO2 30 mmol/L (21-32); CHLORIDE 101 mmol/L (101-111); CHOL/HDL RATIO 2.3 (<4.4); CHOLESTEROL 128 mg/dL; CREATININE 1.1 mg/dL (0.4-1.0); DIGOXIN 0.5 ng/mL; GLUCOSE 101 mg/dL (70-100); HDL CHOLESTEROL 55 mg/dL; LDL CHOLESTEROL,CALCULATED 47 mg/dL; LDL/HDL RATIO 0.9 (<4.4); SODIUM 139 mmol/L (135-145); TOTAL PROTEIN 6.9 g/dL (6.7-8.2); VLDL CHOLESTEROL 26 mg/dL
== END 2020-02-25 23:59 | disposition home or self-care (01) ==
LOC: LAB.WCP 08:31
PROVIDERS: ATTEND Internal Medicine Cardiovascular Disease
DX: I48.20 Chronic atrial fibrillation, unspecified (principal); I25.10 Atherosclerotic heart disease of native coronary artery without angina pectoris; I25.84 Coronary atherosclerosis due to calcified coronary lesion
CPT/HCPCS: 36415; 80053; 80061; 80162; 83721

== ENCOUNTER 2020-03-18 08:00 | Outpatient (CLI) | payer MEDICARE, OTHER ==
[2020-03-18 18:43] LABS: BUN - BLOOD UREA NITROGEN 22 mg/dL (6-20); CALCIUM 9.6 mg/dL (8.5-10.3); CARBON DIOXIDE - CO2 29 mmol/L (21-32); CHLORIDE 101 mmol/L (101-111); CREATININE 1.3 mg/dL (0.4-1.0); DIGOXIN 0.4 ng/mL; GLUCOSE 95 mg/dL (70-100); SODIUM 140 mmol/L (135-145)
[2020-03-18 18:58] LABS: BASOPHILS # (AUTO) 0.1 10^3/uL (0.0-0.1); BASOPHILS % (AUTO) 1.1 %; EOSINOPHILS # (AUTO) 0.1 10^3/uL (0.0-0.7); EOSINOPHILS % (AUTO) 1.8 %; HGB - HEMOGLOBIN 8.4 g/dL (12.0-16.0); LYMPHOCYTES # (AUTO) 1.9 10^3/uL (1.5-3.5); MEAN CORPUSCULAR HEMOGLOBIN 27.1 pg (27.0-31.0); MEAN CORPUSCULAR HGB CONC 28.9 g/dL (32.0-36.0); MEAN CORPUSCULAR VOLUME 93.9 fL (81.0-99.0); MEAN PLATELET VOLUME 12.8 fL (7.9-10.8); MONOCYTES # (AUTO) 0.7 10^3/uL (0.0-1.0); MONOCYTES % (AUTO) 13.1 %; NEUTROPHILS # (AUTO) 2.7 10^3/uL (1.5-6.6); NEUTROPHILS % (AUTO) 48.8 %; PLT - PLATELET COUNT 214 10^3/uL (130-450); RED CELL DISTRIBUTION WIDTH 14.9 % (12.0-15.0); WHITE BLOOD COUNT 5.5 x10^3/uL (4.8-10.8)
[2020-03-18 19:47] LABS: PLATELET ESTIMATE, MANUAL NORMAL (130-450,000) (NORMAL); PLATELET MORPHOLOGY NORMAL APPEARANCE (NORMAL)
== END 2020-03-18 23:59 | disposition home or self-care (01) ==
LOC: LAB.WCP 08:00
PROVIDERS: ATTEND Internal Medicine
DX: I34.0 Nonrheumatic mitral (valve) insufficiency (principal); I48.91 Unspecified atrial fibrillation; R06.09 Other forms of dyspnea
CPT/HCPCS: 36415; 80048; 80162; 83880; 85025; 85379

== ENCOUNTER 2020-03-21 13:35 | Outpatient (CLI) | payer MEDICARE, OTHER ==
[2020-03-21 12:11] LABS: FERRITIN 5.6 ng/mL (11.0-306.8)
[2020-03-21 12:12] LABS: % IRON SATURATION 4 % (20-50); IRON 20 ug/dL (28-170); TOTAL IRON BINDING CAPACITY 462 ug/dL (250-450); TRANSFERRIN 330 mg/dL (192-382)
[2020-03-21 12:14] LABS: FOLATE 19.58 ng/mL (5.90 - >24.8)
== END 2020-03-21 23:59 | disposition home or self-care (01) ==
LOC: LAB.WCP 13:35
PROVIDERS: ATTEND Internal Medicine
DX: D64.9 Anemia, unspecified (principal)
CPT/HCPCS: 36415; 82607; 82728; 82746; 83540; 84466

== ENCOUNTER 2020-03-29 14:36 | Outpatient (CLI) | payer MEDICARE, OTHER | END 2020-03-29 14:37 | disposition EMS.NT | LOC: EMS 14:36 | PROVIDERS: ATTEND Surgery | DX: M54.9 Dorsalgia, unspecified (principal) ==

== ENCOUNTER 2020-04-01 12:59 | Outpatient (CLI) | payer MEDICARE, OTHER | END 2020-04-01 13:00 | disposition home or self-care (01) | LOC: DI 12:59 | PROVIDERS: ATTEND Internal Medicine | DX: I08.1 Rheumatic disorders of both mitral and tricuspid valves (principal) | CPT/HCPCS: 93306 ==

== ENCOUNTER 2020-04-04 08:00 | Outpatient (CLI) | payer MEDICARE, OTHER ==
--- NOTE | 2020-04-04 16:46 | XRAY Report ---
PROCEDURE: Ribs 2 View LT INDICATIONS: THORACIC BACK PAIN TECHNIQUE: 3 views of the left lower ribs were acquired. COMPARISON: Chest radiograph 11/22/2019 FINDINGS: Surgical changes and devices: None. Bones and chest wall: No acute displaced rib fracture. No suspicious bony lesions. Overlying soft tissues appear unremarkable. Lungs and pleura: The visualized lung appears clear. No pleural effusions or pneumothorax are visib le. Atherosclerotic calcifications are seen in the aorta. IMPRESSION: No acute displaced rib fracture is identified. Reviewed by: Jaime Adkins MD on 04/04/2020 4:45 PM PST Approved by: Jaime Adkins MD on 04/04/2020 4:45 PM PST Station ID: [id number]
== END 2020-04-04 23:59 | disposition home or self-care (01) ==
LOC: DI.WCP 08:00
PROVIDERS: ATTEND Internal Medicine
DX: M54.6 Pain in thoracic spine (principal)

== ENCOUNTER 2020-04-22 14:18 | Outpatient (CLI) | payer MEDICARE, OTHER ==
--- NOTE | 2020-04-22 18:59 | MRI Report ---
PROCEDURE: Thoracic Spine W/O INDICATIONS: THORACIC REGION BACK PAIN TECHNIQUE: Noncontrast sagittal T1 spine echo and T2 fast spin echo, sagittal STIR, axial T1 and T2 fast spin ec ho through the thoracic spine. COMPARISON: None. FINDINGS: Image quality: Excellent. Alignment and Curvature: There is normal bony alignment. Bone Marrow: Marrow is of normal overall signal. No acute vertebral body compression fractures. Spinal Cord: Visualized spinal cord is normal in size and signal. Paraspinous Soft Tissues: No paravertebral masses. Miscellaneous: On axial images, central canal and foramina appear widely patent at all scanned level s. Multilevel disc dessication. Minimal scattered disc bulges. IMPRESSION: 1. Scattered disc dessication and disc bulges. Reviewed by: Maddie Sanchez MD on 04/22/2020 5:58 PM [facility] Approved by: Maddie Sanchez MD on 04/22/2020 5:58 PM [facility] Station ID: [id number]
== END 2020-04-22 14:19 | disposition home or self-care (01) ==
LOC: DI 14:18
PROVIDERS: ATTEND Internal Medicine
DX: M51.24 Other intervertebral disc displacement, thoracic region (principal)
CPT/HCPCS: 72146

== ENCOUNTER 2020-07-01 08:00 | Outpatient (CLI) | payer MEDICARE, OTHER ==
[2020-07-01 13:08] LABS: BASOPHILS # (AUTO) 0.1 10^3/uL (0.0-0.1); BASOPHILS % (AUTO) 0.6 %; EOSINOPHILS # (AUTO) 0.2 10^3/uL (0.0-0.7); EOSINOPHILS % (AUTO) 2.2 %; HGB - HEMOGLOBIN 10.4 g/dL (12.0-16.0); LYMPHOCYTES # (AUTO) 2.3 10^3/uL (1.5-3.5); LYMPHOCYTES % (AUTO) 27.8 %; MEAN CORPUSCULAR HEMOGLOBIN 27.5 pg (27.0-31.0); MEAN CORPUSCULAR HGB CONC 28.5 g/dL (32.0-36.0); MEAN CORPUSCULAR VOLUME 96.6 fL (81.0-99.0); MEAN PLATELET VOLUME 13.3 fL (7.9-10.8); MONOCYTES # (AUTO) 0.7 10^3/uL (0.0-1.0); MONOCYTES % (AUTO) 7.9 %; NEUTROPHILS # (AUTO) 5.1 10^3/uL (1.5-6.6); NEUTROPHILS % (AUTO) 61.1 %; PLT - PLATELET COUNT 206 10^3/uL (130-450); RED BLOOD COUNT 3.78 10^6/uL (4.20-5.40); RED CELL DISTRIBUTION WIDTH 16.4 % (12.0-15.0); WHITE BLOOD COUNT 8.3 x10^3/uL (4.8-10.8)
[2020-07-01 13:48] LABS: PLATELET ESTIMATE, MANUAL NORMAL (130-450,000) (NORMAL); PLATELET MORPHOLOGY NORMAL APPEARANCE (NORMAL)
[2020-07-01 15:38] LABS: % IRON SATURATION 6 % (20-50); ALBUMIN 4.1 g/dL (3.2-5.5); ALBUMIN/GLOBULIN RATIO 1.4 (1.0-2.2); ALKALINE PHOSPHATASE 62 IU/L (42-121); ALT ALANINE AMINOTRANSFERASE < 10 IU/L (10-60); AST ASPARTATE AMINOTRANSFERASE 16 IU/L (10-42); BILIRUBIN,TOTAL 0.5 mg/dL (0.2-1.0); BUN - BLOOD UREA NITROGEN 20 mg/dL (6-20); CALCIUM 9.5 mg/dL (8.5-10.3); CARBON DIOXIDE - CO2 24 mmol/L (21-32); CHLORIDE 99 mmol/L (101-111); CHOL/HDL RATIO 2.4 (<4.4); CHOLESTEROL 126 mg/dL; CREATININE 1.2 mg/dL (0.4-1.0); GLUCOSE 95 mg/dL (70-100); HDL CHOLESTEROL 53 mg/dL; IRON 28 ug/dL (28-170); LDL CHOLESTEROL,CALCULATED 40 mg/dL; LDL/HDL RATIO 0.8 (<4.4); TOTAL IRON BINDING CAPACITY 449 ug/dL (250-450); TRANSFERRIN 321 mg/dL (192-382); VLDL CHOLESTEROL 33 mg/dL
[2020-07-03 22:57] LABS: ALBUMIN 4.1 g/dL (3.8-4.8); ALPHA 1 GLOBULIN 0.3 g/dL (0.2-0.3); ALPHA 2 GLOBULIN 0.7 g/dL (0.5-0.9); BETA 1 GLOBULIN 0.5 g/dL (0.4-0.6); BETA 2 GLOBULIN 0.3 g/dL (0.2-0.5)
== END 2020-07-01 23:59 ==
LOC: LAB.WCP 08:00
PROVIDERS: ATTEND Internal Medicine
DX: D50.9 Iron deficiency anemia, unspecified (principal); M54.6 Pain in thoracic spine; I10 Essential (primary) hypertension
CPT/HCPCS: 36415; 80053; 80061; 81599; 82728; 83540; 83721; 84155; 84165; 84466; 85025; 86334

== ENCOUNTER 2021-02-26 14:18 | Outpatient (CLI) | payer MEDICARE, OTHER ==
[2021-02-26 18:14] LABS: ALBUMIN 4.1 g/dL (3.2-5.5); ALBUMIN/GLOBULIN RATIO 1.4 (1.0-2.2); BILIRUBIN,TOTAL 0.7 mg/dL (0.2-1.0); CALCIUM 9.8 mg/dL (8.5-10.3); CREATININE 1.2 mg/dL (0.4-1.0); POTASSIUM 4.4 mmol/L (3.5-5.0); TOTAL PROTEIN 7.1 g/dL (6.7-8.2)
== END 2021-02-26 23:59 | disposition home or self-care (01) ==
LOC: LAB.WCP 14:18
PROVIDERS: ATTEND Internal Medicine Cardiovascular Disease
DX: I48.20 Chronic atrial fibrillation, unspecified (principal)
CPT/HCPCS: 36415; 80053; 80162; 81599

== ENCOUNTER 2021-03-12 12:46 | Outpatient (CLI) | payer MEDICARE, OTHER | END 2021-03-12 23:59 | disposition home or self-care (01) | LOC: LAB.WCP 12:46 | PROVIDERS: ATTEND Internal Medicine Cardiovascular Disease | DX: I27.81 Cor pulmonale (chronic) (principal); R06.02 Shortness of breath | CPT/HCPCS: 36415; 83880 ==

== ENCOUNTER 2021-04-14 07:56 | Outpatient (CLI) | payer MEDICARE, OTHER ==
[2021-04-14 12:29] LABS: % IRON SATURATION 11 % (20-50); ALBUMIN 3.9 g/dL (3.2-5.5); ALBUMIN/GLOBULIN RATIO 1.6 (1.0-2.2); ALKALINE PHOSPHATASE 59 IU/L (42-121); ALT ALANINE AMINOTRANSFERASE 12 IU/L (10-60); AST ASPARTATE AMINOTRANSFERASE 16 IU/L (10-42); BILIRUBIN,TOTAL 1.1 mg/dL (0.2-1.0); BUN - BLOOD UREA NITROGEN 32 mg/dL (6-20); CALCIUM 9.6 mg/dL (8.5-10.3); CARBON DIOXIDE - CO2 28 mmol/L (21-32); CHLORIDE 103 mmol/L (101-111); CHOL/HDL RATIO 2.6 (<4.4); CHOLESTEROL 108 mg/dL; CREATININE 1.5 mg/dL (0.4-1.0); GFR - MDRD 33 (>89); GLUCOSE 101 mg/dL (70-100); HDL CHOLESTEROL 41 mg/dL; IRON 48 ug/dL (28-170); LDL CHOLESTEROL,CALCULATED 27 mg/dL; LDL/HDL RATIO 0.7 (<4.4); POTASSIUM 4.9 mmol/L (3.5-5.0); SODIUM 142 mmol/L (135-145); TOTAL IRON BINDING CAPACITY 423 ug/dL (250-450); TOTAL PROTEIN 6.4 g/dL (6.7-8.2); TRANSFERRIN 302 mg/dL (192-382); TRIGLYCERIDES 202 mg/dL; VLDL CHOLESTEROL 40 mg/dL
[2021-04-14 12:53] LABS: ABSOLUTE RETICS # AUTO 0.129 10^6/uL (0.020-0.110); BASOPHILS # (AUTO) 0.1 10^3/uL (0.0-0.1); BASOPHILS % (AUTO) 0.7 %; EOSINOPHILS # (AUTO) 0.1 10^3/uL (0.0-0.7); EOSINOPHILS % (AUTO) 1.8 %; HCT - HEMATOCRIT 25.2 % (37.0-47.0); HGB - HEMOGLOBIN 7.2 g/dL (12.0-16.0); LYMPHOCYTES # (AUTO) 1.8 10^3/uL (1.5-3.5); LYMPHOCYTES % (AUTO) 24.3 %; MEAN CORPUSCULAR HEMOGLOBIN 30.4 pg (27.0-31.0); MEAN CORPUSCULAR HGB CONC 28.6 g/dL (32.0-36.0); MEAN CORPUSCULAR VOLUME 106.3 fL (81.0-99.0); MEAN PLATELET VOLUME 12.6 fL (7.9-10.8); MONOCYTES # (AUTO) 0.6 10^3/uL (0.0-1.0); MONOCYTES % (AUTO) 8.9 %; NEUTROPHILS # (AUTO) 4.6 10^3/uL (1.5-6.6); PLT - PLATELET COUNT 174 10^3/uL (130-450); RED BLOOD COUNT 2.37 10^6/uL (4.20-5.40); RED CELL DISTRIBUTION WIDTH 17.9 % (12.0-15.0); RETICULOCYTE COUNT % (AUTO) 5.42 % (0.5-2.3); WHITE BLOOD COUNT 7.2 x10^3/uL (4.8-10.8)
[2021-04-14 12:55] LABS: THYROID STIMULATING HORMONE 12.1 uIU/mL (0.34-5.60)
[2021-04-14 13:01] LABS: FERRITIN 14.1 ng/mL (11.0-306.8)
[2021-04-14 16:49] LABS: FREE T4 (FREE THYROXINE) 0.76 ng/dL (0.58-1.64)
== END 2021-04-14 23:59 | disposition home or self-care (01) ==
LOC: LAB.WCP 07:56
PROVIDERS: ATTEND Internal Medicine
DX: I10 Essential (primary) hypertension (principal); D50.9 Iron deficiency anemia, unspecified; F32.A Depression, unspecified
CPT/HCPCS: 36415; 80053; 80061; 82728; 83540; 83721; 84439; 84443; 84466; 85025; 85045

== ENCOUNTER 2021-05-01 07:00 | Outpatient (CLI) | payer MEDICARE, OTHER ==
[2021-05-01 19:47] LABS: FECAL OCCULT BLOOD (FIT) POSITIVE (NEGATIVE)
== END 2021-05-01 23:59 | disposition home or self-care (01) ==
LOC: LAB 07:00
PROVIDERS: ATTEND Internal Medicine
DX: D50.9 Iron deficiency anemia, unspecified (principal)
CPT/HCPCS: 82274

== ENCOUNTER 2021-07-24 08:00 | Outpatient (CLI) | payer MEDICARE, OTHER ==
[2021-07-24 09:11] LABS: DIGOXIN 0.5 ng/mL
[2021-07-24 09:25] LABS: THYROID STIMULATING HORMONE 5.64 uIU/mL (0.34-5.60)
[2021-07-24 09:27] LABS: FREE T4 (FREE THYROXINE) 0.74 ng/dL (0.58-1.64)
[2021-07-24 15:19] LABS: CHOLESTEROL 130 mg/dL; HDL CHOLESTEROL 44 mg/dL; LDL CHOLESTEROL,CALCULATED 44 mg/dL; TRIGLYCERIDES 212 mg/dL; VLDL CHOLESTEROL 42 mg/dL
== END 2021-07-24 23:59 | disposition home or self-care (01) ==
LOC: LAB 08:00
PROVIDERS: ATTEND Internal Medicine Cardiovascular Disease
DX: I10 Essential (primary) hypertension (principal); E03.9 Hypothyroidism, unspecified; I48.20 Chronic atrial fibrillation, unspecified
CPT/HCPCS: 36415; 80061; 80162; 83721; 84439; 84443

== ENCOUNTER 2021-08-14 09:16 | Outpatient (CLI) | payer MEDICARE, OTHER ==
[2021-08-14 18:42] LABS: BASOPHILS # (AUTO) 0.1 10^3/uL (0.0-0.1); BASOPHILS % (AUTO) 0.7 %; EOSINOPHILS # (AUTO) 0.1 10^3/uL (0.0-0.7); EOSINOPHILS % (AUTO) 1.2 %; HCT - HEMATOCRIT 37.7 % (37.0-47.0); HGB - HEMOGLOBIN 11.7 g/dL (12.0-16.0); LYMPHOCYTES # (AUTO) 1.8 10^3/uL (1.5-3.5); MEAN CORPUSCULAR HEMOGLOBIN 29.5 pg (27.0-31.0); MEAN PLATELET VOLUME 13.1 fL (7.9-10.8); MONOCYTES # (AUTO) 0.6 10^3/uL (0.0-1.0); MONOCYTES % (AUTO) 6.8 %; NEUTROPHILS # (AUTO) 6.1 10^3/uL (1.5-6.6); NEUTROPHILS % (AUTO) 70.1 %; PLT - PLATELET COUNT 209 10^3/uL (130-450); RED BLOOD COUNT 3.97 10^6/uL (4.20-5.40); RED CELL DISTRIBUTION WIDTH 16.3 % (12.0-15.0); WHITE BLOOD COUNT 8.7 x10^3/uL (4.8-10.8)
[2021-08-14 18:56] LABS: ALBUMIN 4.4 g/dL (3.2-5.5); ALBUMIN/GLOBULIN RATIO 1.3 (1.0-2.2); BILIRUBIN,TOTAL 0.7 mg/dL (0.2-1.0); CALCIUM 9.7 mg/dL (8.5-10.3); CREATININE 1.5 mg/dL (0.4-1.0); POTASSIUM 4.5 mmol/L (3.5-5.0); TOTAL PROTEIN 7.7 g/dL (6.7-8.2)
== END 2021-08-14 09:17 | disposition home or self-care (01) ==
LOC: LAB.N 09:16
PROVIDERS: ATTEND Internal Medicine Hematology & Oncology
DX: D50.9 Iron deficiency anemia, unspecified (principal)
CPT/HCPCS: 36415; 80053; 85025

== ENCOUNTER 2021-09-25 08:00 | Outpatient (CLI) | payer MEDICARE, OTHER ==
--- NOTE | 2021-09-25 16:44 | XRAY Report ---
PROCEDURE: Foot 3 View LT INDICATIONS: GOUTY arthritis TECHNIQUE: 3 views of the foot were acquired. COMPARISON: None. FINDINGS: Bones: No fractures or dislocations. No suspicious bony lesions. Soft tissues: No tophus demonstrated. No tibiotalar joint effusion. Achilles tendon appears normal. IMPRESSION: No significant osseous abnormality. Reviewed by: Brent Lilly MD on 09/25/2021 4:43 PM PDT Approved by: Brent Lilly MD on 09/25/2021 4:43 PM PDT Station ID: [id number]
== END 2021-09-25 23:59 | disposition home or self-care (01) ==
LOC: DI.N 08:00
PROVIDERS: ATTEND Family Medicine
DX: M10.00 Idiopathic gout, unspecified site (principal)

== ENCOUNTER 2022-06-04 08:24 | Outpatient (CLI) | payer MEDICARE, OTHER ==
[2022-06-04 12:10] LABS: BASOPHILS # (AUTO) 0.1 10^3/uL (0.0-0.1); BASOPHILS % (AUTO) 1.2 %; EOSINOPHILS # (AUTO) 0.2 10^3/uL (0.0-0.7); EOSINOPHILS % (AUTO) 2.8 %; HCT - HEMATOCRIT 37.3 % (37.0-47.0); HGB - HEMOGLOBIN 11.5 g/dL (12.0-16.0); LYMPHOCYTES # (AUTO) 2.3 10^3/uL (1.5-3.5); LYMPHOCYTES % (AUTO) 34.8 %; MEAN CORPUSCULAR HEMOGLOBIN 29.2 pg (27.0-31.0); MEAN CORPUSCULAR HGB CONC 30.8 g/dL (32.0-36.0); MEAN CORPUSCULAR VOLUME 94.7 fL (81.0-99.0); MEAN PLATELET VOLUME 12.4 fL (7.9-10.8); MONOCYTES # (AUTO) 0.7 10^3/uL (0.0-1.0); MONOCYTES % (AUTO) 10.3 %; NEUTROPHILS # (AUTO) 3.3 10^3/uL (1.5-6.6); NEUTROPHILS % (AUTO) 50.7 %; PLT - PLATELET COUNT 145 10^3/uL (130-450); RED BLOOD COUNT 3.94 10^6/uL (4.20-5.40); RED CELL DISTRIBUTION WIDTH 13.6 % (12.0-15.0); WHITE BLOOD COUNT 6.5 x10^3/uL (4.8-10.8)
[2022-06-04 12:17] LABS: % IRON SATURATION 27 % (20-50); ALBUMIN 4.6 g/dL (3.2-5.5); ALBUMIN/GLOBULIN RATIO 1.7 (1.0-2.2); ALKALINE PHOSPHATASE 59 IU/L (42-121); ALT ALANINE AMINOTRANSFERASE 13 IU/L (10-60); AST ASPARTATE AMINOTRANSFERASE 23 IU/L (10-42); BILIRUBIN,TOTAL 1.1 mg/dL (0.2-1.0); BUN - BLOOD UREA NITROGEN 38 mg/dL (6-20); CALCIUM 9.4 mg/dL (8.5-10.3); CARBON DIOXIDE - CO2 30 mmol/L (21-32); CHLORIDE 99 mmol/L (101-111); CHOLESTEROL 139 mg/dL; CREATININE 1.5 mg/dL (0.4-1.0); GFR - MDRD 33 (>89); GLUCOSE 94 mg/dL (70-100); HDL CHOLESTEROL 46 mg/dL; IRON 91 ug/dL (28-170); LDL CHOLESTEROL,CALCULATED 52 mg/dL; LDL/HDL RATIO 1.1 (<4.4); POTASSIUM 3.8 mmol/L (3.5-5.0); SODIUM 139 mmol/L (135-145); TOTAL IRON BINDING CAPACITY 333 ug/dL (250-450); TOTAL PROTEIN 7.3 g/dL (6.7-8.2); TRANSFERRIN 238 mg/dL (192-382); TRIGLYCERIDES 205 mg/dL; VLDL CHOLESTEROL 41 mg/dL
[2022-06-04 12:26] LABS: THYROID STIMULATING HORMONE 7.51 uIU/mL (0.34-5.60)
[2022-06-04 13:02] LABS: FREE T4 (FREE THYROXINE) 0.78 ng/dL (0.58-1.64)
== END 2022-06-04 08:25 | disposition home or self-care (01) ==
LOC: LAB.N 08:24
PROVIDERS: ATTEND Internal Medicine
DX: I48.0 Paroxysmal atrial fibrillation (principal); I65.29 Occlusion and stenosis of unspecified carotid artery; E61.1 Iron deficiency; E03.9 Hypothyroidism, unspecified
CPT/HCPCS: 36415; 80053; 80061; 82728; 83540; 83721; 84439; 84443; 84466; 85025

== ENCOUNTER 2022-07-02 08:27 | Outpatient (CLI) | payer MEDICARE | END 2022-07-02 08:28 | disposition home or self-care (01) | LOC: LAB.N 08:27 | DX: Z53.9 Procedure and treatment not carried out, unspecified reason (principal) ==

== ENCOUNTER 2023-02-02 08:43 | Outpatient (CLI) | payer MEDICARE, MEDICAID ==
[2023-02-02 12:03] LABS: BASOPHILS # (AUTO) 0.1 10^3/uL (0.0-0.1); EOSINOPHILS # (AUTO) 0.3 10^3/uL (0.0-0.7); EOSINOPHILS % (AUTO) 3.7 %; HCT - HEMATOCRIT 39.8 % (37.0-47.0); HGB - HEMOGLOBIN 12.3 g/dL (12.0-16.0); LYMPHOCYTES # (AUTO) 2.1 10^3/uL (1.5-3.5); LYMPHOCYTES % (AUTO) 25.5 %; MEAN CORPUSCULAR HEMOGLOBIN 29.9 pg (27.0-31.0); MEAN CORPUSCULAR HGB CONC 30.9 g/dL (32.0-36.0); MEAN CORPUSCULAR VOLUME 96.6 fL (81.0-99.0); MEAN PLATELET VOLUME 12.5 fL (7.9-10.8); MONOCYTES # (AUTO) 0.8 10^3/uL (0.0-1.0); MONOCYTES % (AUTO) 9.2 %; NEUTROPHILS % (AUTO) 60.4 %; PLT - PLATELET COUNT 185 10^3/uL (130-450); RED BLOOD COUNT 4.12 10^6/uL (4.20-5.40); RED CELL DISTRIBUTION WIDTH 13.2 % (12.0-15.0); WHITE BLOOD COUNT 8.3 x10^3/uL (4.8-10.8)
[2023-02-02 12:41] LABS: ALBUMIN 4.3 g/dL (3.2-5.5); ALBUMIN/GLOBULIN RATIO 1.5 (1.0-2.2); BILIRUBIN,TOTAL 0.5 mg/dL (0.2-1.0); CREATININE 1.5 mg/dL (0.6-1.3); POTASSIUM 4.2 mmol/L (3.5-4.5); TOTAL PROTEIN 7.1 g/dL (6.4-8.9)
[2023-02-02 12:47] LABS: THYROID STIMULATING HORMONE 7.36 uIU/mL (0.34-5.60)
[2023-02-02 12:52] LABS: FERRITIN 86.2 ng/mL (11.0-306.8)
== END 2023-02-02 08:44 | disposition home or self-care (01) ==
LOC: LAB.N 08:43
PROVIDERS: ATTEND Internal Medicine
DX: I10 Essential (primary) hypertension (principal); E03.9 Hypothyroidism, unspecified; K31.A29 Gastric intestinal metaplasia with dysplasia, unspecified
CPT/HCPCS: 36415; 80053; 82728; 83540; 84439; 84443; 84466; 85025

== ENCOUNTER 2023-02-15 15:58 | Outpatient (CLI) | payer MEDICARE, MEDICAID ==
[2023-02-15 21:02] LABS: CRP - C-REACTIVE PROTEIN 1.2 mg/dL (<0.5); URIC ACID 10.3 mg/dL (2.3-6.6)
== END 2023-02-15 15:59 | disposition home or self-care (01) ==
LOC: LAB.N 15:58
PROVIDERS: ATTEND Podiatrist
DX: M10.9 Gout, unspecified (principal)
CPT/HCPCS: 36415; 81374; 84550; 86038; 86140

== ENCOUNTER 2023-07-01 11:46 | Outpatient (CLI) | payer MEDICARE, MEDICAID ==
[2023-07-01 12:32] LABS: THYROID STIMULATING HORMONE 4.86 uIU/mL (0.34-5.60)
== END 2023-07-01 11:47 | disposition home or self-care (01) ==
LOC: LAB 11:46
PROVIDERS: ATTEND Internal Medicine
DX: E03.9 Hypothyroidism, unspecified (principal); E79.0 Hyperuricemia without signs of inflammatory arthritis and tophaceous disease
CPT/HCPCS: 36415; 84443; 84550